=== PATIENT | male | born 1955 | race Caucasian/White ===

== ENCOUNTER 2020-06-01 20:58 | Emergency (ER) | payer MEDICARE, MEDICAID, SELFPAY ==
--- NOTE | ~2020-06-01 | XR_ITS ---
XR chest 1V portable DATE: 06/01/2020 21:20 INDICATION: Left-sided chest pain for 2 days TECHNIQUE: Portable upright AP chest on 06/01/2020 at 2112 hours COMPARISON: None FINDINGS: Heart size is within normal range. Mild infiltrate or atelectasis in the left lower lung; o therwise no pulmonary consolidation, pleural effusion or pneumothorax. Degenerative spurring of the thoracic spine. IMPRESSION: Mild infiltrate or atelectasis in the left lower lung Reviewed, dictated and finalized at location A.
[2020-06-01 21:00] VITALS: BP 131/72; PULSE 89; RESP 16; TEMP 36.7; O2SAT 100
--- NOTE | 2020-06-01 21:04 | ECG_ITS ---
Measurements Intervals [place] Rate: 87 P: 47 NC: 204 QRS: -10 QRSD: 93 T: -4 QT: 351 QTc: 424 Interpretive Statements SINUS RHYTHM BORDERLINE AV CONDUCTION DELAY LOW QRS VOLTAGE IN PRECORDIAL LEADS MINIMAL Q WAVES- ANTEROLATERAL LEADS INFERIOR INFARCT, AGE INDETERMINATE ABNORMAL ECG Electronically Signed On 06-02-2020 0:16:44 CDT by Spencer Young D.O.
[2020-06-01] MEDS: MORPHINE SULFATE (*CRX) 4 MG/ML INJ IV PUSH (21:43)
[2020-06-01 21:52] LABS: Basophils Percent Auto 0.5 % (0.2-1.2); Eosinophils Absolute Auto 0.7 K/mm3 (0-0.3); Eosinophils Percent Auto 8.7 % (0-4.4); Hematocrit 31.7 % (42.0-52.0); Hemoglobin 10.8 g/dL (14.0-18.0); Immature Granulocyte Absolute 0.03 K/mm3 (0.00-0.031); Immature Granulocyte Percent A 0.4 % (0-0.5); Lymphocytes Absolute Auto 1.85 K/mm3 (0.9-3.2); Lymphocytes Percent Auto 23.6 % (18.3-44.2); Mean Corpuscular HGB Conc 34.1 g/dl (32-36); Mean Corpuscular Volume 88.1 fl (80-100); Mean Platelet Volume 9.5 fl (7.4-10.4); Monocytes Absolute Auto 0.7 K/mm3 (0.1-0.6); Monocytes Percent Auto 8.9 % (2.6-8.5); Neutrophils Absolute Auto 4.5 K/mm3 (1.3-6.7); Neutrophils Percent Auto 57.9 % (45.5-73.1); Platelet Count Result 448 k/mm3 (150-375); Red Cell Distribution Width 13.1 % (11.5-14.5); White Blood Count 7.8 K/mm3 (4.5-10.0)
[2020-06-01 22:05] LABS: Alanine Aminotransferase 15 U/L (4-50); Alkaline Phosphatase 43 U/L (38-126); Anion Gap 4 mmol/L (8-16); Aspartate Amino Transferase 29 U/L (17-59); Bilirubin,Total 0.2 mg/dL (0.2-1.3); Blood Urea Nitrogen 31 mg/dL (9-20); Calcium 8.7 mg/dL (8.4-10.2); Carbon Dioxide 32 mmol/L (22-30); Chloride 91 mmol/L (98-107); Estimated CRCL calculation 54 ml/min; Estimated Glomerular Filt Rate 51; Glucose 208 mg/dL (75-110); Potassium 4.3 mmol/L (3.4-5.0); Sodium 127 mmol/L (137-145)
[2020-06-01 22:16] LABS: Troponin I < 0.012 ng/mL (0.000-0.034)
[2020-06-01 22:38] LABS: Troponin I < 0.012 ng/mL (0.000-0.034)
[2020-06-02 00:19] VITALS: BP 131/89; PULSE 63; RESP 16; O2SAT 98
--- NOTE | 2020-06-02 01:50 | ED.GENADULT ---
HPI - General Adult General Chief complaint: Chest Pain Stated complaint: left cp, non radiating since this am Time Seen by Provider: 06/01/20 21:19 History of Present Illness HPI narrative: Patient is a 64-year-old gentleman who presents to the emergency department with a chief complaint of chest pain. The patient reports that he has been having chest pain for multiple days states that it is not been resolved patient reports that's more on the left side of his chest states is worse with inspiration and worse with movement. Patient states that he has had prior history of 1 stent in the past but this does not feel like whenever he had his stent. Patient denies fever denies chills reports that he is a diabetic and has been treated for a ulcer of his left lower extremity in the recent history. Related Data Allergies Allergy/AdvReac Type Severity Reaction Status Date / Time No Known Allergies Allergy Unverified 03/04/12 10:30 Review of Systems Review of Systems: Narrative: A 10 system review of systems was completed on the patient and is negative except for what is stated in the HPI. Nursing and ancillary documentation was reviewed. [facility] Family History Family History Father Family history of diabetes mellitus in first degree relative Social History Social History Smoking status: Never smoker Alcohol intake: never Comments Patient has history of diabetes prior cardiac stent Social history the [facility] is a [facility] Exam Narrative: Exam Narrative: GENERAL: Well-appearing, well-nourished, and in no acute distress. HEAD: Normocephalic, atraumatic. EYES: PERRLA and EOMI. ENT: Nares clear, no rhinorrhea or epistaxis. Mucous membranes moist. NECK: Supple. CHEST: Clear to auscultation. No respiratory distress. HEART: Regular rate and rhythm. No murmur heard. Normal peripheral pulses. ABDOMEN: Soft, nontender, nondistended, normal active bowel sounds. EXTREMITIES: Normal range of motion. No edema. There is an amputation of the right lower extremity SKIN: Warm, dry, no rash. NEURO: No focal deficits. Alert and oriented x3. PSYCH: Normal mood and affect. Course Course Emergency Course: Patient had 2 sets of cardiac markers in the emergency department that were both negative. Chest x-ray shows a possible infiltrate in the left lung lind. Given the course of the pain felt this is most likely noncardiac. Given that there is findings consistent with infiltrate on the chest x-ray the patient will be empirically treated with antibiotics for community-acquired pneumonia. Vital Signs Vital signs: Vital Signs Temperature 36.7 C 06/01/20 21:00 Pulse Rate 89 06/01/20 21:00 Respiratory Rate 16 06/01/20 21:00 Blood Pressure 131/72 06/01/20 21:00 Pulse Oximetry 100 06/01/20 21:00 Temperature 36.7 C 06/01/20 21:00 Pulse Rate 63 06/02/20 00:19 Respiratory Rate 16 06/02/20 00:19 Blood Pressure 131/89 06/02/20 00:19 Pulse Oximetry 98 06/02/20 00:19 Medical Decision Making Vital Signs Vital Signs: Vital Signs Temperature 36.7 C 06/01/20 21:00 Pulse Rate 89 06/01/20 21:00 Respiratory Rate 16 06/01/20 21:00 Blood Pressure 131/72 06/01/20 21:00 Pulse Oximetry 100 06/01/20 21:00 Temperature 36.7 C 06/01/20 21:00 Pulse Rate 63 06/02/20 00:19 Respiratory Rate 16 06/02/20 00:19 Blood Pressure 131/89 06/02/20 00:19 Pulse Oximetry 98 06/02/20 00:19 Lab Data Result diagrams: 06/01/20 21:45 06/01/20 21:45 Labs: Lab Results 06/01/20 06/01/20 06/01/20 Range/Units 21:45 21:45 22:10 WBC 7.8 (4.5-10.0) K/mm3 RBC 3.60 L (4.6-6.20) M/mm3 Hgb 10.8 L (14.0-18.0) g/dL Hct 31.7 L (42.0-52.0) % MCV 88.1 (80-100) fl MCH 30.0 (26-34) pg MCHC 34.1 (3
--- NOTE | 2020-06-02 02:39 | PC.NURSE ---
made contact with [facility] to transfer patient back to [facility] in [place]. ETA in route
[2020-06-02 02:45] VITALS: BP 134/82; PULSE 88; RESP 16; O2SAT 97
--- NOTE | 2020-06-02 03:59 | PC.NURSE ---
[facility] has arrived and EMT aware that pt is going to [facility] in [place]
[2020-06-02 04:59] VITALS: BP 124/73; PULSE 69; RESP 16; TEMP 36.3; O2SAT 97
== END 2020-06-02 05:00 ==
PROVIDERS: Emergency Provider Emergency Medicine; PCP Internal Medicine
DX: J18.9 Pneumonia, unspecified organism (principal); R07.89 Other chest pain; E11.9 Type 2 diabetes mellitus without complications; Z79.4 Long term (current) use of insulin; Z95.5 Presence of coronary angioplasty implant and graft; R94.31 Abnormal electrocardiogram [ECG] [EKG]
CPT/HCPCS: 36415; 71045; 80053; 84484; 85025; 93005; 96374; 99284; A9270; J2270

== ENCOUNTER 2020-12-23 11:24 | Observation (INO) | payer MEDICARE, MEDICAID, SELFPAY ==
--- NOTE | ~2020-12-23 | CT_ITS ---
EXAMINATION: CT abdomen pelvis w con DATE: 12/23/2020 13:32 INDICATION: Diffuse abdominal tenderness TECHNIQUE: Computed tomography (CT) of the abdomen and pelvis was performed with 100 mL Omnipaque-350 intravenous contrast. Automated exposure control and iterative reconstruction technique were employe d. The dose-length product was 1331.12 mGy-cm. COMPARISON: 03/04/2012 tiny left and trace right pleural effusions with mild dependent atelectasis in the bilateral lower lobes. Heart size is normal. Atherosclerotic coronary artery calcifications. Like ly stenting along the left anterior descending coronary artery. No pericardial effusion. Prominent bu t still normal-sized likely reactive paraesophageal lymph node measuring 9 mm in maximal short axis d iameter. Percutaneous gastrostomy tube with bulb position in the distal body of the stomach. 7 mm cyst at the anterior dome of the liver. There is mild wall thickening of the gallbladder and trace amount of lidia cholecystic fluid suspicious for acute cholecystitis. Increased intraluminal density at the neck of t he gallbladder consistent with gallstones and/or sludge. Punctate dystrophic calcification is at the head and body of the pancreas consistent with sequela of of chronic pancreatitis. No peripancreatic i nflammatory stranding to suggest acute interstitial pancreatitis. Mild scattered diverticulosis with sigmoid predominance without adjacent inflammatory change to suggest diverticulitis. Small bowel and appendix are normal. There is diffuse bladder wall thickening. No free intraperitoneal gas or fluid. No pathologically enlarged abdominal or pelvic lymphadenopathy. Spleen, bilateral adrenal glands and kidneys are normal. Very small fat-containing umbilical hernia. L5 spondylolysis with bilateral pars intra-articular is defects and 7 mm anterolisthesis L5 on S1 with severe disc height loss. FINDINGS: 1. Findings suspicious for cholelithiasis and acute cholecystitis. Correlate for Head and could con psychometrist further evaluation with either ultrasound or HIDA scan. 2. Diffuse bladder wall thickening which could be due to cystitis either acute or chronic. Correlate with urinalysis. 2. Very small left and trace right pleural effusions. IMPRESSION: 1. Reviewed, dictated and finalized at location A. IMPRESSION: 1.
--- NOTE | ~2020-12-23 | US_ITS ---
EXAMINATION: US abdomen limited DATE: 12/24/2020 08:01 INDICATION: Cholecystitis with elevated liver enzymes TECHNIQUE: Multiple grayscale and Doppler ultrasound images of the abdomen were obtained. COMPARISON: None FINDINGS: The pancreatic head and body are normal in appearance. The pancreatic tail is not visualized. Liver has normal echogenicity and contour, with a smooth surface. No liver lesion identified. No intrahepat ic biliary duct dilation suspected. Portal venous flow was seen in the hepatopetal, normal direction and has normal Doppler waveform. There is diffuse mild gallbladder wall thickening. The neck of the g allbladder suspected sludge or stones were identified on prior CT is not clearly visualized on the cu rrent study due to in part to rib shadowing. The common bile duct measures 4 mm, which is normal. Son ographic Head sign was reported as negative by the mobile nurse. IMPRESSION: 1. Mild gallbladder wall thickening with negative sonographic Head sign and with no cholelithiasis evident on the current study although the neck of the gallbladder were suspected stones versus sludge were identified on prior CT is not clearly visualized in the current study. This remains suspicious but not diagnostic for acute cholecystitis and could consider HIDA scan for further evaluation. Reviewed, dictated and finalized at location A. GER AUDIT IMPRESSION: 1. Mild gallbladder wall thickening with negative sonographic Head sign and w ith no cholelithiasis evident on the current study although the neck of the gal lbladder were suspected stones versus sludge were identified on prior CT is not clearly visualized in the current study. This remains suspicious but not diagn ostic for acute cholecystitis and could consider HIDA scan for further evaluati on.
--- NOTE | ~2020-12-23 | NM_ITS ---
EXAMINATION: NM hepatobiliary wo pharm DATE: 12/25/2020 11:09 INDICATION: Cholecystitis. COMPARISON: CT abdomen and pelvis 12/23/2020, ultrasound 12/23/20 TECHNIQUE: 5 mCi Tc-99m mebrofenin (Choletec) was administered intravenously. Scintigraphic images o f the abdomen were obtained for one hour. FINDINGS: There is normal clearance of radiotracer from the blood pool. There is homogeneous tracer u ptake by the liver. Activity progresses to the bowel and gallbladder. IMPRESSION: 1. Normal hepatobiliary scintigraphy. Reviewed, dictated and finalized at location A. IR TECH
--- NOTE | ~2020-12-23 | XR_ITS ---
MODIFIED ESOPHAGRAM HISTORY: Dysphagia. TECHNIQUE: Modified barium esophagram was performed by speech pathologist under radiologist fluorosco pic guidance. This was recorded on tape. The exam was reviewed on 12/26/2020 09:29 HOISTING LABORER. The DAP for this procedure was 2.1 Gycm2. Fluoroscopy time is 2.5 minutes. One fluoroscopic image. FINDINGS: Lateral projection of the cervical spine demonstrates normal alignment. There is normal s wallowing function during oral stage. There is reduced laryngeal elevation. There is trace laryngeal penetration which clears with thin liquids. No aspiration.. IMPRESSION: 1: Trace laryngeal penetration without aspiration. 2: Please refer to speech pathologist report for additional detail. Reviewed, dictated and finalized at location A. TING LABORER
[2020-12-23 11:26] VITALS: BP 95/68; PULSE 100; RESP 18; TEMP 37.3; O2SAT 100
--- NOTE | 2020-12-23 12:18 | ED.RECABL ---
HPI - Recheck/Abnormal Lab/Rx General Chief Complaint: Recheck/Abnormal Lab/Rx Stated Complaint: UNABLE TO FLUSH G TUBE Time Seen by Provider: 12/23/20 12:02 Source: patient, EMS, RN notes reviewed and old records reviewed Mode of arrival: EMS Limitations: no limitations and other (poor historian) History of Present Illness HPI narrative: This is a 65 year old male with history of multiple medical problems who presents for evaluation of abdominal pain and g-tube dysfunction. Patient reports he has been having pain around his g tube for 2 weeks. He also has nausea and he reports vomiting over the past 2 days. He denies fever, chills, or diarrhea, and he states he had normal bowel movement today. Patient is unsure when his g tube was placed and why it is in place. Nursing staff reported patient was sent in because intermediate staff was unable to flush g tube this morning and they aspirated some blood tingle fluid. It is also reports his g tube was placed at [facility]. He states he does eat and take oral medications. Related Data Home Medications Medication Instructions Recorded Confirmed acetaminophen 650 mg PO Q6H PRN 12/23/20 12/23/20 acidophilus-sporogenes 1 tablet PO BID 12/23/20 12/23/20 albuterol sulfate 2 puff INHALATION QID PRN 12/23/20 12/23/20 artificial tears solution 2 drp OPHTHALMIC (EYE) PRN PRN 12/23/20 12/23/20 carboxymethylcellulose sodium 1 drp EACH EYE 4-6XD PRN 12/23/20 12/23/20 carvedilol 6.25 mg PO Q12H 12/23/20 12/23/20 cefepime 2 g IV Q12H 12/23/20 12/23/20 cholecalciferol (vitamin D3) 125 mcg PO DAILY 12/23/20 12/23/20 collagenase clostridium histo. 1 applic TOPICAL DAILY 12/23/20 12/23/20 cyanocobalamin (vitamin B-12) 1,000 mcg PO DAILY 12/23/20 12/23/20 [Vitamin B-12] escitalopram oxalate 5 mg PO DAILY 12/23/20 12/23/20 esomeprazole magnesium 40 mg PO DAILY 12/23/20 12/23/20 fenofibrate 145 mg PO DAILY 12/23/20 12/23/20 ferrous sulfate 325 mg PO TID 12/23/20 12/23/20 fluticasone propionate [Allergy 1 spray INTRANASAL DAILY 12/23/20 12/23/20 Relief (fluticasone)] furosemide 20 mg PO DAILY 12/23/20 12/23/20 guaifenesin [Antitussive Cough 200 mg PO Q4H PRN 12/23/20 12/23/20 (guaifenesn)] insulin aspart U-100 [Novolog 4 unit SUBCUT ACHS 12/23/20 12/23/20 U-100 Insulin aspart] loperamide 2 mg PO Q4H PRN 12/23/20 12/23/20 metformin 1,000 mg PO BID 12/23/20 12/23/20 estbfyrztguy-nqz-jpnu-FA-vit K 1 tablet PO DAILY 12/23/20 12/23/20 [Adults Multivitamin] nitroglycerin 0.4 mg SUBLINGUAL Q5-15M PRN 12/23/20 12/23/20 ondansetron HCl [Zofran] 4 mg PO Q6H PRN 12/23/20 12/23/20 rosuvastatin 20 mg PO DAILY 12/23/20 12/23/20 thiamine HCl (vitamin B1) [Vitamin 100 mg PO DAILY 12/23/20 12/23/20 B-1] Allergies Allergy/AdvReac Type Severity Reaction Status Date / Time No Known Allergies Allergy Unverified 03/04/12 10:30 Review of Systems Review of Systems: All systems reviewed & are unremarkable except as noted in HPI and below Constitutional: Constitutional: Denies chills and Denies fever(s) Cardiovascular: Cardiovascular: Denies chest pain Respiratory: Respiratory: Denies cough and Denies dyspnea Gastrointestinal: Gastrointestinal: Reports abdominal pain, Denies diarrhea, Reports nausea and Reports vomiting Genitourinary: Genitourinary: Denies hematuria [facility] Past Medical History Medical History (Updated 12/23/20 @ 23:42 by Judit Dooley MD) Anemia Chronic wound of extremity left heel Congestive heart failure systolic and diastolic Coronary artery disease Diabetes mellitus type 2 G tube feedings History of Clostridioides difficile colitis History of gastrostomy tube placement 11/17/2020 dr anewenah Hyperlipidemia Hypertension Iliac vein stenosis, right Major depressive disorder Necrotizing fasciitis Neuropathy Obstructive sleep apnea Peripheral vascular disease Polyneuropathy Surgical History Surgical History (Updated 12/23/20 @ 21:51 by
[2020-12-23] MEDS: SODIUM CHLORIDE 0.9% IV 1,000 ML 999 ML IV CONT (12:46)
[2020-12-23 12:54] LABS: Basophils Percent Auto 0.1 % (0.2-1.2); Eosinophils Absolute Auto 0.1 K/mm3 (0-0.3); Eosinophils Percent Auto 0.7 % (0-4.4); Hematocrit 26.5 % (42.0-52.0); Hemoglobin 8.7 g/dL (14.0-18.0); Immature Granulocyte Absolute 0.06 K/mm3 (0.00-0.031); Immature Granulocyte Percent A 0.4 % (0-0.5); Lymphocytes Absolute Auto 0.78 K/mm3 (0.9-3.2); Lymphocytes Percent Auto 5.5 % (18.3-44.2); Mean Corpuscular HGB Conc 32.8 g/dl (32-36); Mean Corpuscular Hemoglobin 31.1 pg (26-34); Mean Corpuscular Volume 94.6 fl (80-100); Mean Platelet Volume 9.7 fl (7.4-10.4); Monocytes Absolute Auto 0.8 K/mm3 (0.1-0.6); Monocytes Percent Auto 5.7 % (2.6-8.5); Neutrophils Absolute Auto 12.3 K/mm3 (1.3-6.7); Neutrophils Percent Auto 87.6 % (45.5-73.1); Platelet Count Result 273 k/mm3 (150-375); Red Cell Distribution Width 15.7 % (11.5-14.5); White Blood Count 14.1 K/mm3 (4.5-10.0)
[2020-12-23 13:06] LABS: Alanine Aminotransferase 351 U/L (4-50); Albumin Level 3.7 g/dL (3.5-5.1); Alkaline Phosphatase 116 U/L (38-126); Anion Gap 7 mmol/L (8-16); Aspartate Amino Transferase 512 U/L (17-59); Bilirubin,Total 0.8 mg/dL (0.2-1.3); Blood Urea Nitrogen 36 mg/dL (9-20); Calcium 9.1 mg/dL (8.4-10.2); Carbon Dioxide 31 mmol/L (22-30); Chloride 88 mmol/L (98-107); Estimated CRCL calculation 46 ml/min; Estimated Glomerular Filt Rate 41; Glucose 141 mg/dL (65-110); Lipase 130 U/L (23-300); Potassium 4.8 mmol/L (3.4-5.0); Sodium 126 mmol/L (137-145)
[2020-12-23 13:34] LABS: Acetaminophen < 10 ug/mL (10-30)
[2020-12-23 14:22] LABS: Hepatitis B Surface Antigen Negative (Negative)
[2020-12-23 14:28] LABS: HAV RESULT Negative (Negative); Hepatitis B Core IgM Result Negative (Negative)
[2020-12-23 14:40] VITALS: BP 107/68; PULSE 56; RESP 18; O2SAT 97
[2020-12-23 14:40] LABS: Hepatitis C Virus Antibody Negative (Negative)
[2020-12-23 14:48] LABS: Add Urine Microscopic? YES; Appearance Urine Cloudy (Clear); Bilirubin Urine Negative (Negative); Blood Urine Negative (Negative); Color Urine Yellow (Yellow); Glucose Urine UA Negative (Negative); Ketones Urine Negative (Negative); Leukocyte Esterase Ur Negative LEU/UL (Negative); Mucus Urine Rare /lpf; Nitrate Urine Negative (Negative); Protein Urine 1+ mg/dL (Negative); RBC Urine 0-2 /hpf (0-2); Specific Grav Ur 1.018 (1.001-1.035); Urobilinogen Urine Negative mg/dL (<2.0); WBC Urine 0-3 /hpf
[2020-12-23] MEDS: MORPHINE SULFATE (*CRX) 4 MG/ML INJ IV PUSH (17:12)
[2020-12-23 17:29] VITALS: BMI 35.0
--- NOTE | 2020-12-23 17:33 | PC.NURSE ---
This patient, Bruno Justin, was admitted to Medical Room 242-01. Patient/family oriented to hospital policies and general routines including ID bracelet, bed and alarms, visiting hours, pain management, procedures, bathroom and other care routines, personal items, smoking policy, room service/diet, and visiting hours. Information on how to activate the Rapid Response Team has been discussed. Patient/Family are encouraged to report perceived risks to care and to ask questions if they do not understand what they are told or what they should do.
[2020-12-23] MEDS: SODIUM CHLORIDE 0.9% IV 1,000 ML 125 ML IV CONT (19:03)
--- NOTE | 2020-12-23 21:29 | PM.IMHP ---
H&P: HPI History of Present Illness Date/Time: 12/23/20 21:29 this is a 65-year-old male patient who has a history of diabetes, Erika and digestive heart failure and pressure ulcer to the left heel which is chronic. The patient tells me he resides at [facility]. The patient was sent into the emergency room today to be evaluated for abdominal pain NG tube dysfunction. The patient was complaining of abdominal discomfort around his G-tube for last 2 weeks. Patient has had nausea and vomiting over the past 2 days. He denied any fever chills or diarrhea. Patient is not eating very well at all. The patient does have a Gtube for unknown reasons. however the longterm staff sent the patient to the ER today because they were unable to flush his G-tube this morning. In aspirated some blood tinged fluid. This G-tube had been placed at [facility]. Abdominal pelvis CT was read as the following. 1. Findings suspicious for cholelithiasis and acute cholecystitis. Correlate for Head and could consider further evaluation with either ultrasound or HIDA scan. 2. Diffuse bladder wall thickening which could be due to cystitis either acute or chronic. Correlate with urinalysis. 2. Very small left and trace right pleural effusions. white count was 14.1. H&H is 8.7 and 26.5 creatinine 1.7 glucose 141. AST was 512 and ALT 351. The patient was started on Zosyn and surgical consult was placed per ED. the patient was started on Zosyn and IV fluids in the emergency room. The patient is being admitted to observation status on the date of service of 12/23/2020 Chief Complaint: dysfunctional G-tube Review of Systems Review of Systems: the patient is a very poor historian. When I ask him questions he just states I do not know PMFSH Past Medical History Medical History (Updated 12/23/20 @ 22:10 by Jane Lombardi NP) Anemia Chronic wound of extremity left heel Congestive heart failure systolic and diastolic Coronary artery disease Diabetes mellitus type 2 G tube feedings History of Clostridioides difficile colitis History of gastrostomy tube placement 11/17/2020 dr higgins Hyperlipidemia Hypertension Iliac vein stenosis, right Major depressive disorder Necrotizing fasciitis Neuropathy Obstructive sleep apnea Peripheral vascular disease Polyneuropathy Surgical History Surgical History (Updated 12/23/20 @ 21:51 by Jane Lombardi NP) Above knee amputation of right lower extremity History of colonoscopy Family History Family History (Updated 12/23/20 @ 21:52 by Jane Lombardi NP) Father Family history of diabetes mellitus in first degree relative Hypertension Cancer Mother Lung cancer Sibling Heart disease Social History Social History (Updated 12/23/20 @ 21:54 by Jane Lombardi NP) Social History: the patient is . he is disabled and stated that he has not had any children. He lives at [facility] in [facility]. patient is lifelong nonsmoker. Code status do not resuscitate Smoking status: Never smoker Alcohol intake: never Substance use: never Substance use type: does not use Spiritual care concerns: No Meds Home Medications and Allergies Home Medications Medication Instructions Recorded Confirmed Type insulin aspart U-100 100 unit/mL See Rx Instructions SUB-Q TID #15 05/17/19 12/23/20 Rx (3 mL) subcutaneous pen ml hydrocodone 5 mg-acetaminophen 325 1 tablet PO Q6H PRN #120 tablet 06/28/19 12/23/20 Rx mg tablet pregabalin 100 mg capsule See Rx Instructions PO BID #90 cap 06/16/20 12/23/20 Rx acetaminophen 650 mg PO Q6H PRN 12/23/20 12/23/20 History acidophilus-sporogenes 1 tablet PO BID 12/23/20 12/23/20 History albuterol sulfate 2 puff INHALATION QID PRN 12/23/20 12/23/20 History artificial tears solution 2 drp OPHTHALMIC (EYE) PRN PRN 12/23/20 12/23/20 History carboxymethylcellulose sodium 1 drp EACH EYE 4-6XD PRN 12/23/20
[2020-12-23 21:47] LABS: Glucose Point of Care 98 mg/dl (65-105)
[2020-12-23 22:00] VITALS: BP 122/47; PULSE 58; RESP 18; TEMP 36.4; O2SAT 96
[2020-12-23] MEDS: PREGABALIN (*CRX) 50 MG CAPSULE 100 MG PO (22:59)
[2020-12-23 23:01] VITALS: PULSE 88
[2020-12-23] MEDS: carvediloL 6.25 MG TABLET PO (23:01)
[2020-12-23 23:07] VITALS: O2SAT 94
[2020-12-24] VITALS (7 sets, daily range): BP systolic 104–115; BP diastolic 53–57; PULSE 59–118; RESP 13–20; TEMP 36.3–36.4; O2SAT 92–97
--- NOTE | 2020-12-24 02:05 | PC.NURSE ---
Daylight Savings Time For Daylight Savings Time Ending in the Fall - Clocks are moved back. For Daylight Savings Time Beginning in the Spring - Clocks are moved ahead. For [facility], the time of change occurs at 0200 hrs. Time is taken from the food and beverage server. This entry on the patient's chart recognizes the change in time reflected during documentation. Example: 2 entries for vital signs may be charted for 0200 hrs.
[2020-12-24] MEDS: SODIUM CHLORIDE 0.9% IV 1,000 ML 125 ML IV CONT ×2 (02:30→19:00)
[2020-12-24 08:26] LABS: Glucose Point of Care 113 mg/dl (65-105)
[2020-12-24 08:28] LABS: Alanine Aminotransferase 200 U/L (4-50); Albumin Level 3.1 g/dL (3.5-5.1); Alkaline Phosphatase 96 U/L (38-126); Anion Gap 9 mmol/L (8-16); Aspartate Amino Transferase 145 U/L (17-59); Bilirubin,Total 0.5 mg/dL (0.2-1.3); Blood Urea Nitrogen 30 mg/dL (9-20); Calcium 8.1 mg/dL (8.4-10.2); Carbon Dioxide 25 mmol/L (22-30); Chloride 95 mmol/L (98-107); Estimated CRCL calculation 51 ml/min; Estimated Glomerular Filt Rate 51; Glucose 112 mg/dL (65-110); Potassium 4.1 mmol/L (3.4-5.0); Sodium 129 mmol/L (137-145)
[2020-12-24 08:32] LABS: Basophils Percent Auto 0.3 % (0.2-1.2); Eosinophils Absolute Auto 0.2 K/mm3 (0-0.3); Eosinophils Percent Auto 1.7 % (0-4.4); Hematocrit 25.5 % (42.0-52.0); Hemoglobin 8.1 g/dL (14.0-18.0); Immature Granulocyte Absolute 0.05 K/mm3 (0.00-0.031); Immature Granulocyte Percent A 0.5 % (0-0.5); Lymphocytes Absolute Auto 0.23 K/mm3 (0.9-3.2); Lymphocytes Percent Auto 2.2 % (18.3-44.2); Mean Corpuscular HGB Conc 31.8 g/dl (32-36); Mean Corpuscular Volume 97.7 fl (80-100); Mean Platelet Volume 10.6 fl (7.4-10.4); Monocytes Absolute Auto 0.6 K/mm3 (0.1-0.6); Monocytes Percent Auto 5.6 % (2.6-8.5); Neutrophils Absolute Auto 9.6 K/mm3 (1.3-6.7); Neutrophils Percent Auto 89.7 % (45.5-73.1); Platelet Count Result 227 k/mm3 (150-375); Red Blood Count 2.61 M/mm3 (4.6-6.20); Red Cell Distribution Width 16.1 % (11.5-14.5); White Blood Count 10.7 K/mm3 (4.5-10.0)
--- NOTE | 2020-12-24 08:34 | WPDGICN ---
Assessment and Plan Assessment and plan (1) Cholecystitis: Code(s): K81.9 - Cholecystitis, unspecified Status: Acute Assessment and Plan: Abnormal CT scan and ultrasound suggests the possibility of cholecystitis. Surgery has been consulted. Would recommend HIDA scan to determine whether the gallbladder is functioning adequately. Await surgical input. Patient has no overt clinical signs of cholecystitis at present. (2) PEG (percutaneous endoscopic gastrostomy) status: Code(s): Z93.1 - Gastrostomy status Status: Acute Assessment and Plan: PEG tube currently flushes adequately with gastric contents withdrawn suggesting is working adequately. Patient is able to eat orally without difficulty. At some point would suggest modified barium swallow to see if he can maintain oral intake. If so then G-tube could be discontinued. Would wait an adequate amount of time to ensure that he can maintain oral intake for nutritional support. Old records regarding the reason for G-tube placement or not immediately available for review. At this point resuming tube feedings can be implemented , pending surgical consultation. GI Consult Note Consult date/time: 12/24/20 08:35 HPI: Bruno Justin is a 65 year old male I am asked to see patient because of a plugged G-tube. Patient apparently hospitalized G-tube was placed at the beginning of November this year. Apparently at the skilled nursing he has been able to maintain some oral intake. He currently is conversant and answers most questions in a reasonable fashion. His memory is not very good. He is a poor historian. Currently denies abdominal pain. He was sent to [facility] emergency room apparently because of inability to flush the G-tube. CT scan suggested he may have cholecystitis and question of cholelithiasis. Ultrasound performed this morning is equivocal and a HIDA scan was advised. Patient denies any nausea or vomiting. Review of Systems Review of Systems: ROS unobtainable: Yes unobtainable due to mental status PMFSH Past Medical History Medical History (Updated 12/23/20 @ 23:42 by Judit Dooley MD) Anemia Chronic wound of extremity left heel Congestive heart failure systolic and diastolic Coronary artery disease Diabetes mellitus type 2 G tube feedings History of Clostridioides difficile colitis History of gastrostomy tube placement 11/17/2020 dr higgins Hyperlipidemia Hypertension Iliac vein stenosis, right Major depressive disorder Necrotizing fasciitis Neuropathy Obstructive sleep apnea Peripheral vascular disease Polyneuropathy Surgical History Surgical History (Updated 12/24/20 @ 08:37 by Hesham Vigil MD) Above knee amputation of right lower extremity History of colonoscopy Family History Family History (Updated 12/23/20 @ 21:52 by Jane Lombardi NP) Father Family history of diabetes mellitus in first degree relative Hypertension Cancer Mother Lung cancer Sibling Heart disease Social History Social History (Updated 12/23/20 @ 21:54 by Jane Lombardi NP) Social History: the patient is . he is disabled and stated that he has not had any children. He lives at [facility] in [facility]. patient is lifelong nonsmoker. Code status do not resuscitate Smoking status: Never smoker Alcohol intake: never Substance use: never Substance use type: does not use Spiritual care concerns: No Meds Home Medications and Allergies Home Medications Medication Instructions Recorded Confirmed Type insulin aspart U-100 100 unit/mL See Rx Instructions SUB-Q TID #15 05/17/19 12/23/20 Rx (3 mL) subcutaneous pen ml hydrocodone 5 mg-acetaminophen 325 1 tablet PO Q6H PRN #120 tablet 06/28/19 12/23/20 Rx mg tablet pregabalin 100 mg capsule See Rx Instructions PO BID #90 cap 06/16/20 12/23/20 Rx acetaminophen 650 mg PO Q6H PRN 12/23/20 12/23/20 History acidophilu
[2020-12-24] MEDS: CHOLECALCIFEROL 1,000 UNITS TABLET 1000 UNITS PO (09:06)
[2020-12-24] MEDS: ESCITALOPRAM OXALATE 5 MG TABLET PO (09:06)
[2020-12-24] MEDS: THIAMINE HCL 100 MG TABLET PO (09:06)
[2020-12-24] MEDS: CYANOCOBALAMIN 1,000 MCG TABLET 1000 MCG PO (09:06)
[2020-12-24] MEDS: FERROUS SULFATE 324 MG TABLET PO ×3 (09:06→16:55)
[2020-12-24] MEDS: MULTIVITAMINS /C LUTEIN (CENTRUM SILVER) TABLET *BKC 1 TAB PO (09:06)
[2020-12-24] MEDS: ROSUVASTATIN 10 MG TABLET 20 MG PO (09:06)
[2020-12-24] MEDS: COLLAGENASE OINT 30 GM TUBE 1 APPLIC TOPICAL (09:06)
[2020-12-24] MEDS: FENOFIBRATE NANOCRYSTALLIZED 145 MG TABLET PO (09:06)
[2020-12-24] MEDS: carvediloL 6.25 MG TABLET PO ×2 (09:06→20:39)
[2020-12-24] MEDS: FLUTICASONE PROPIONATE 0.05% NA SPR 16 GM BTL (*BKC) 1 SPRAY NASAL (09:07)
[2020-12-24] MEDS: INSULIN ASPART (*BKC) 100 UNITS/ML SUB-Q ×3 (09:08→16:55)
[2020-12-24] MEDS: HEPARIN SODIUM 5,000 UNITS/ML VIAL 5000 UNITS SUB-Q ×2 (09:10→20:40)
[2020-12-24] MEDS: PREGABALIN (*CRX) 50 MG CAPSULE PO ×2 (09:10→20:39)
--- NOTE | 2020-12-24 09:36 | PM.CNGS ---
Assessment and Plan Assessment and plan (1) Cholecystitis: Code(s): K81.9 - Cholecystitis, unspecified Status: Acute Assessment and Plan: exam benign, will get HIDA for further eval (2) PEG (percutaneous endoscopic gastrostomy) status: Code(s): Z93.1 - Gastrostomy status Status: Acute Assessment and Plan: was able to flush s issue History of Present Illness Consult details Consult date: 12/24/20 Reason for consult: abdominal pain Requesting physician: Ja Pierce MD Narrative: Pt is a 65 y/o M c multiple med issues presenting from [facility] c/o N/V, upper abd pain. Pt had PEG tube placed recently and reports pain is really only around site. Pt had tube placed secondary to poor po intake but has since been able to tolerate diet and meds. G tube was reportedly clogged on admission. Since admit, pt denies any further abd pain, N/V. Review of Systems Constitutional: Constitutional: Reports anorexia, Denies chills, Reports fatigue, Denies fever(s), Denies increased appetite, Reports lethargy, Denies malaise, Reports poor appetite and Reports weakness Eyes: Eyes: Reports no additional eye complaints ENT: Reports system reviewed and no additional complaints, except as documented Cardiovascular: Cardiovascular: Reports no additional cardiovascular complaints Respiratory: Respiratory: Reports no additional respiratory complaints Gastrointestinal: Gastrointestinal: Reports as per HPI, Reports abdominal pain, Denies bloating, Denies change in bowel habits, Reports early satiety, Denies heartburn, Reports nausea and Reports vomiting Genitourinary: Genitourinary: Reports no additional male genitourinary complaints Musculoskeletal: Musculoskeletal: Reports no additional musculoskeletal complaints Integumentary/Breasts: Skin/Breast: Reports system reviewed and no additional complaints, except as docu Neurologic: Reports system reviewed and no additional complaints, except as documented Psychiatric: Psychiatric: Reports no additional psychiatric complaints Endocrine: Endocrine: Reports no additional endocrine complaints Hematologic/Lymphatic: Hematologic/Lymphatic: Reports no additional hematologic/lymphatic complaints Allergic/Immunologic: Allergic/Immunologic: Reports no additional allergic/immunologic complaints PMFSH Past Medical History Medical History Anemia Chronic wound of extremity left heel Congestive heart failure systolic and diastolic Coronary artery disease Diabetes mellitus type 2 G tube feedings History of Clostridioides difficile colitis History of gastrostomy tube placement 11/17/2020 dr higgins Hyperlipidemia Hypertension Iliac vein stenosis, right Major depressive disorder Necrotizing fasciitis Neuropathy Obstructive sleep apnea Peripheral vascular disease Polyneuropathy Surgical History Surgical History Above knee amputation of right lower extremity History of colonoscopy Family History Family History Father Family history of diabetes mellitus in first degree relative Hypertension Cancer Mother Lung cancer Sibling Heart disease Social History Social History Social History: the patient is . he is disabled and stated that he has not had any children. He lives at [facility] in [facility]. patient is lifelong nonsmoker. Code status do not resuscitate Smoking status: Never smoker Alcohol intake: never Substance use: never Substance use type: does not use Spiritual care concerns: No Meds Home Medications and Allergies Home Medications Medication Instructions Recorded Confirmed Type insulin aspart U-100 100 unit/mL See Rx Instructions SUB-Q TID #15 05/17/19 12/23/20 Rx (3 mL) subcutaneo
[2020-12-24 12:42] LABS: Glucose Point of Care 168 mg/dl (65-105)
--- NOTE | 2020-12-24 17:29 | PM.IMPN ---
Progress Note: A&P Assessment and Plan (1) Gastrostomy tube dysfunction: Code(s): K94.23 - Gastrostomy malfunction Status: Acute Assessment and Plan: PEG tube currently flushes adequately with gastric contents withdrawn suggesting is working adequately. Patient is able to eat orally without difficulty. At some point would suggest modified barium swallow to see if he can maintain oral intake. If so then G-tube could be discontinued. (2) Cholecystitis: Code(s): K81.9 - Cholecystitis, unspecified Status: Acute Assessment and Plan: The patient was started on Zosyn. GI recommends HIDA scan to determine whether the gallbladder is functioning adequately. Await surgical input. Patient has no overt clinical signs of cholecystitis at present. (3) Major depressive disorder: Code(s): F32.9 - Major depressive disorder, single episode, unspecified Status: Chronic Assessment and Plan: Continue with Lexapro (4) Polyneuropathy: Code(s): G62.9 - Polyneuropathy, unspecified Status: Acute Assessment and Plan: continue with Lyrica (5) Congestive heart failure: Code(s): I50.9 - Heart failure, unspecified Status: Chronic Assessment and Plan: currently diuretic on hold to avoid dehydration. Continue with Coreg only. (6) Hyperlipidemia: Code(s): E78.5 - Hyperlipidemia, unspecified Status: Chronic Assessment and Plan: continue fenofibrate (7) Chronic wound of extremity: Status: Chronic Assessment and Plan: wound Care has been consulted. This is a chronic diabetic foot ulcer. He has peripheral vascular disease. 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 (8) G tube feedings: Code(s): Z93.1 - Gastrostomy status Status: Acute Assessment and Plan: Currently on hold. Peg tube currently flushes adequately with gastric contents withdrawn suggesting proper functioning. We will schedule modified barium swallow in a.m. to see if the patient is able to maintain oral intake. (9) Anemia: Code(s): D64.9 - Anemia, unspecified Status: Chronic Assessment and Plan: continue to monitor. Check CBC daily. (10) Obstructive sleep apnea: Code(s): G47.33 - Obstructive sleep apnea (adult) (pediatric) Status: Chronic Assessment and Plan: CPAP machine auto titrate to home (11) Diabetes mellitus: Code(s): E11.9 - Type 2 diabetes mellitus without complications Status: Chronic Assessment and Plan: holding home metformin at this time. Will do sliding scale insulin. Long-acting insulin has been continued. Fasting blood glucose was 112. Accu-Chek in the 113-168 range. (12) Hypertension: Code(s): I10 - Essential (primary) hypertension Status: Chronic Assessment and Plan: Blood pressure on the soft side with systolic in the 115-117/56-57 range. Hold Coreg. (13) Acute kidney injury superimposed on chronic kidney disease: Code(s): N17.9 - Acute kidney failure, unspecified; N18.9 - Chronic kidney disease, unspecified Status: Acute Assessment and Plan: patient's creatinine is 1.7 today previously is 1.4. I am holding his metformin and his Lasix today. Continue with IV fluids and recheck in the morning. (14) Hyponatremia: Code(s): E87.1 - Hypo-osmolality and hyponatremia Status: Acute Assessment and Plan: Improved with a sodium of 129 today. Continue to monitor. Subjective Date/time seen: Narrative: This is a 65-year-old male patient who has a history of diabetes, heart failure, pressure ulcer to the left heel Admitted for evaluation of abdominal pain NG tube dysfunction. The patient had been experiencing nausea and vomiting over the past 2 days. He denied any fever chills or diarrhea. Patient is not eating very well at all. Abdominal pelvis CT was read as suspicious for cho
[2020-12-24 17:45] LABS: Glucose Point of Care 118 mg/dl (65-105)
--- NOTE | 2020-12-24 17:58 | PC.NURSE ---
This nurse contacted the POA Nenita Dobbs [phone]. The POA stated that the facility stated that the patient was having blood coming from his G tube and there was some puss noted around the incision site of the G tube. This nurse informed the POA that the facility stated that the G tube was clogged but at this time it currently isn't clogged, no blood noted in the tube itself, and there is no puss noted around the skin site where the G tube is located. The family member was also concerned because at one point the patient had gotten down to 150 pounds and is now currently almost 200 pounds with a drastic weight increase according to family. This nurse stated that she was going to contact the facility to discuss the above information with them. The facility was called and it has been noted that the patient is eating 3 meals a day sometimes only 2 and they were giving the patient tube feedings during the evening time Glucerna 1.5 50mL/hr from 2000 to 0600. The nurse at the facility that this nurse discussed the patient with did not mention any regular flushing of the G tube or the use of the G tube during the day time. Family had stated that the patient was having troubles with vomiting and they were concerned he was getting too much food and the facility stated that he doesn't always eat every meal but he has been having some vomiting issues. A message was left with the floorperson in regards to the patients G tube feedings, GI and surgery are currently following on the patients case.
[2020-12-24] MEDS: ACIDOPHILUS/BULGARICUS CHEWABLE TABLET 1 TABLET PO (18:36)
[2020-12-24] MEDS: PREGABALIN (*CRX) 50 MG CAPSULE 100 MG PO (20:39)
[2020-12-24 21:55] LABS: Glucose Point of Care 90 mg/dl (65-105)
[2020-12-25] VITALS (8 sets, daily range): BP systolic 125–142; BP diastolic 66–68; PULSE 86–101; RESP 16–22; TEMP 36.9–37.6; O2SAT 90–99; BMI 35.0
[2020-12-25 05:52] LABS: Basophils Percent Auto 0.2 % (0.2-1.2); Eosinophils Absolute Auto 0.2 K/mm3 (0-0.3); Eosinophils Percent Auto 2.1 % (0-4.4); Hemoglobin 8.2 g/dL (14.0-18.0); Immature Granulocyte Absolute 0.03 K/mm3 (0.00-0.031); Immature Granulocyte Percent A 0.3 % (0-0.5); Lymphocytes Percent Auto 4.2 % (18.3-44.2); Mean Corpuscular HGB Conc 32.8 g/dl (32-36); Mean Corpuscular Hemoglobin 30.7 pg (26-34); Mean Corpuscular Volume 93.6 fl (80-100); Mean Platelet Volume 10.3 fl (7.4-10.4); Monocytes Absolute Auto 0.5 K/mm3 (0.1-0.6); Monocytes Percent Auto 5.6 % (2.6-8.5); Neutrophils Absolute Auto 8.3 K/mm3 (1.3-6.7); Neutrophils Percent Auto 87.6 % (45.5-73.1); Platelet Count Result 224 k/mm3 (150-375); Red Blood Count 2.67 M/mm3 (4.6-6.20); Red Cell Distribution Width 15.9 % (11.5-14.5); White Blood Count 9.5 K/mm3 (4.5-10.0)
[2020-12-25] MEDS: SODIUM CHLORIDE 0.9% IV 1,000 ML 125 ML IV CONT ×2 (06:13→16:00)
[2020-12-25 06:14] LABS: Anion Gap 11 mmol/L (8-16); Blood Urea Nitrogen 24 mg/dL (9-20); Carbon Dioxide 23 mmol/L (22-30); Chloride 98 mmol/L (98-107); Estimated CRCL calculation 51 ml/min; Estimated Glomerular Filt Rate 51; Glucose 106 mg/dL (65-110); Sodium 132 mmol/L (137-145)
--- NOTE | 2020-12-25 06:42 | PM.IMPN ---
Progress Note: A&P Assessment and Plan (1) Gastrostomy tube dysfunction: Code(s): K94.23 - Gastrostomy malfunction Status: Acute Assessment and Plan: Plan for modified barium swallow in AM. (2) Cholecystitis: Code(s): K81.9 - Cholecystitis, unspecified Status: Acute Assessment and Plan: . Patient has no overt clinical signs of cholecystitis at present. We will stop the zosyn. (3) Major depressive disorder: Code(s): F32.9 - Major depressive disorder, single episode, unspecified Status: Chronic Assessment and Plan: Continue with Lexapro (4) Polyneuropathy: Code(s): G62.9 - Polyneuropathy, unspecified Status: Acute Assessment and Plan: continue with Lyrica (5) Congestive heart failure: Code(s): I50.9 - Heart failure, unspecified Status: Chronic Assessment and Plan: Hold diuretic. Continue with Coreg only. (6) Hyperlipidemia: Code(s): E78.5 - Hyperlipidemia, unspecified Status: Chronic Assessment and Plan: continue fenofibrate (7) Chronic wound of extremity: Status: Chronic Assessment and Plan: wound Care has been consulted. This is a chronic diabetic foot ulcer. He has peripheral vascular disease. 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 (8) G tube feedings: Code(s): Z93.1 - Gastrostomy status Status: Acute Assessment and Plan: Currently on hold. Peg tube currently flushes adequately with gastric contents withdrawn suggesting proper functioning. We will schedule modified barium swallow in a.m. to see if the patient is able to maintain oral intake. (9) Anemia: Code(s): D64.9 - Anemia, unspecified Status: Chronic Assessment and Plan: continue to monitor. Check CBC daily. (10) Obstructive sleep apnea: Code(s): G47.33 - Obstructive sleep apnea (adult) (pediatric) Status: Chronic Assessment and Plan: CPAP machine auto titrate to home (11) Diabetes mellitus: Code(s): E11.9 - Type 2 diabetes mellitus without complications Status: Chronic Assessment and Plan: holding home metformin at this time. Will do sliding scale insulin. Long-acting insulin has been continued. Fasting blood glucose was 112. Accu-Chek in the 113-168 range. (12) Hypertension: Code(s): I10 - Essential (primary) hypertension Status: Chronic Assessment and Plan: Blood pressure improved to 142/68 after holding Coreg. (13) Acute kidney injury superimposed on chronic kidney disease: Code(s): N17.9 - Acute kidney failure, unspecified; N18.9 - Chronic kidney disease, unspecified Status: Acute Assessment and Plan: Creatinine stable around 1.4. This may be his baseline. (14) Hyponatremia: Code(s): E87.1 - Hypo-osmolality and hyponatremia Status: Acute Assessment and Plan: Improved with a sodium of 132 today. Continue to monitor. Subjective Date/time seen: 12/25/20 06:42 s: The patient was examined at the bedside. He is comfortable and denies any complaints. He passed a swallow test today. Review of Systems Review of Systems: All systems reviewed & are unremarkable except as noted in HPI and below Constitutional: Constitutional: Reports no additional constitutional complaints and Reports poor appetite Eyes: Eyes: Reports no additional eye complaints ENT: Reports system reviewed and no additional complaints, except as documented and Reports Normal hearing present Cardiovascular: Cardiovascular: Reports no additional cardiovascular complaints Respiratory: Respiratory: Reports no additional respiratory complaints Gastrointestinal: Gastrointestinal: Reports no additional gastrointestinal complaints, Reports abdominal pain, Reports nausea and Reports vomiting Genitourinary: Genitourinary: Reports no additional male genitourinary complaints Musculoskeletal
[2020-12-25 08:00] LABS: Glucose Point of Care 100 mg/dl (65-105)
[2020-12-25] MEDS: COLLAGENASE OINT 30 GM TUBE 1 APPLIC TOPICAL (08:21)
[2020-12-25 12:00] LABS: Glucose Point of Care 98 mg/dl (65-105)
[2020-12-25] MEDS: FLUTICASONE PROPIONATE 0.05% NA SPR 16 GM BTL (*BKC) 1 SPRAY NASAL (12:05)
[2020-12-25] MEDS: FENOFIBRATE NANOCRYSTALLIZED 145 MG TABLET PO (12:05)
[2020-12-25] MEDS: CYANOCOBALAMIN 1,000 MCG TABLET 1000 MCG PO (12:05)
[2020-12-25] MEDS: CHOLECALCIFEROL 1,000 UNITS TABLET 1000 UNITS PO (12:05)
[2020-12-25] MEDS: HEPARIN SODIUM 5,000 UNITS/ML VIAL 5000 UNITS SUB-Q ×2 (12:05→20:30)
[2020-12-25] MEDS: ROSUVASTATIN 10 MG TABLET 20 MG PO (12:05)
[2020-12-25] MEDS: ACIDOPHILUS/BULGARICUS CHEWABLE TABLET 1 TABLET PO ×2 (12:05→16:01)
[2020-12-25] MEDS: ESCITALOPRAM OXALATE 5 MG TABLET PO (12:06)
[2020-12-25] MEDS: THIAMINE HCL 100 MG TABLET PO (12:06)
[2020-12-25] MEDS: FERROUS SULFATE 324 MG TABLET PO ×2 (12:06→16:01)
[2020-12-25] MEDS: MULTIVITAMINS /C LUTEIN (CENTRUM SILVER) TABLET *BKC 1 TAB PO (12:06)
--- NOTE | 2020-12-25 13:13 | WPDGIPROGNO ---
Progress Note: A&P Assessment and Plan (1) Cholecystitis: Code(s): K81.9 - Cholecystitis, unspecified Status: Acute Assessment and Plan: HIDA scan normal suggesting does not have cholecystitis. Surgical follow-up for their opinion. Plan to advance to low-fat diet if they agree. (2) PEG (percutaneous endoscopic gastrostomy) status: Code(s): Z93.1 - Gastrostomy status Status: Acute Assessment and Plan: Peg tube functioning well and can be utilized. It is uncertain if this is necessary as he is eating adequately. Modified barium swallow may help determine the safety of eating orally. Subjective Date/time seen: 12/25/20 13:13 Patient comfortable at rest. No pain reported. Review of Systems Review of Systems: All systems reviewed & are unremarkable except as noted in HPI and below Exam Narrative: Abdomen is soft nontender. Peg tube functioning well in flushes adequately. HIDA scan noted to be normal. Objective Data Vital Signs Vital Signs: Vital Signs - 24 hr 12/24/20 15:44 12/24/20 20:39 12/24/20 22:00 Temperature 97.6 F 97.5 F L Pulse Rate 59 L 72 90 Respiratory Rate 20 18 Blood Pressure 115/57 L 104/53 L Pulse Oximetry 95 97 12/24/20 22:52 12/24/20 23:53 12/25/20 04:35 Temperature Pulse Rate 93 101 H Respiratory Rate 13 20 Blood Pressure Pulse Oximetry 92 94 93 12/25/20 06:00 Temperature 98.5 F Pulse Rate 99 Respiratory Rate 16 Blood Pressure 142/68 H Pulse Oximetry 94 Intake/Output Intake/Output: Intake & Output 12/23/20 12/24/20 12/24/20 12/25/20 00:59 00:59 23:59 23:59 Intake Total 1100 Balance 1100 Meds/Results Medications: Active Medications Generic Name Dose Route Start Last Admin Trade Name Freq PRN Reason Stop Dose Admin Acetaminophen 650 mg 12/23/20 22:04 Acetaminophen 325 Mg Tablet PO Q6H PRN Fever Albuterol 2 puff 12/23/20 22:04 Albuterol Sulfate (*Sp) Aerosol 1 Puff INHALATION QID PRN Shortness Of Breath Artificial Tears 2 drop 12/23/20 22:21 Artificial Tears Ophth Soln 15 Ml Bottle EACH EYE PRN PRN Dry Eye(S) Carvedilol 6.25 mg 12/23/20 21:00 12/24/20 20:39 Carvedilol 6.25 Mg Tablet PO 6.25 mg Q12H WEI Administration Collagenase 1 applic 12/24/20 09:00 12/25/20 08:21 Collagenase Oint 30 Gm Tube TOPICAL 1 applic DAILY WEI Administration Cyanocobalamin 1,000 mcg 12/24/20 09:00 12/25/20 12:05 Cyanocobalamin 1,000 Mcg Tablet PO 1,000 mcg DAILY WEI Administration Dextrose 12.5 gm 12/23/20 22:12 Dextrose 50% 25 Gm/50 Ml Syringe IV PUSH PRN PRN Hypoglycemia Protocol Escitalopram Oxalate 5 mg 12/24/20 09:00 12/25/20 12:06 Escitalopram Oxalate 5 Mg Tablet PO 5 mg DAILY WEI Administration Fenofibrate 145 mg 12/24/20 09:00 12/25/20 12:05 Fenofibrate Nanocrystallized 145 Mg Tablet PO 145 mg QAM WEI Administration Ferrous Sulfate 324 mg 12/24/20 09:00 12/25/20 12:06 Ferrous Sulfate 324 Mg Tablet PO 324 mg TID WEI Administration Fluticasone Propionate 1 spray 12/24/20 09:00 12/25/20 12:05 Fluticasone Propionate 0.05% Na Spr 16 Gm Btl (*Bk) NASAL 1 spray DAILY WEI Administration Glucagon 1 mg 12/23/20 22:12 Glucagon For Inj 1 Mg Vial IM PRN PRN Hypoglycemia Protocol Glucose 15 gm 12/23/20 22:12 Glucose Oral Gel 15 Gm Of Glucse In 37.5 Gm Tube PO PRN PRN Hypoglycemia Protocol Guaifenesin 200 mg 12/23/20 22:20 Guaifenesin 200 Mg/10 Ml Udc PO Q4H PRN Cough Heparin Sodium (Porcine) 5,000 units 12/24/20 09:00 12/25/20 12:05 Heparin Sodium 5,000 Units/Ml Vial SUB-Q 5,000 units Q12HR WEI Administration Piperacillin/Tazobactam/Dextrose 3.375 gm in 50 mls @ 100 mls/hr 12/23/20 23:00 12/25/20 12:33 Zosyn 3.375 Gm/D5w 50ml Pm IVPB 100 mls/hr Q6HR WEI Administration Sodium Chloride 1,
--- NOTE | 2020-12-25 15:58 | PM.PNGS ---
Progress Note: A&P Assessment and Plan (1) Cholecystitis: Code(s): K81.9 - Cholecystitis, unspecified Status: Acute Assessment and Plan: doing well, exam benign, HIDA normal, low fat diet Subjective Subjective Date/Time Seen: 12/25/20 15:58 feels ok, no acute issues, no pain Review of Systems Review of Systems: All systems reviewed & are unremarkable except as noted in HPI and below Exam Const: General: cooperative, comfortable and no acute distress Nutritional Appearance: obese Resp: Effort & Inspection: normal respiratory effort Auscultation: diminished lung sounds Cardio: Rate: regular rate Rhythm: regular rhythm GI: Inspection: normal to inspection GI Palp: No abdominal tenderness and No Tenderness to palpation present (GI) Other: PEG - C/D/I Objective Data Vital Signs Vital Signs: Vital Signs - 24 hr 12/24/20 20:39 12/24/20 22:00 12/24/20 22:52 Temperature 36.4 C L Pulse Rate 72 90 Respiratory Rate 18 Blood Pressure 104/53 L Pulse Oximetry 97 92 12/24/20 23:53 12/25/20 04:35 12/25/20 06:00 Temperature 36.9 C Pulse Rate 93 101 H 99 Respiratory Rate 13 20 16 Blood Pressure 142/68 H Pulse Oximetry 94 93 94 12/25/20 08:13 Temperature Pulse Rate Respiratory Rate Blood Pressure Pulse Oximetry 94 Intake/Output Intake/Output: Intake & Output 12/23/20 12/24/20 12/24/20 12/25/20 00:59 00:59 23:59 23:59 Intake Total 1150 Balance 1150 Meds/Results Medications: Active Medications Generic Name Dose Route Start Last Admin Trade Name Freq PRN Reason Stop Dose Admin Acetaminophen 650 mg 12/23/20 22:04 Acetaminophen 325 Mg Tablet PO Q6H PRN Fever Albuterol 2 puff 12/23/20 22:04 Albuterol Sulfate (*Sp) Aerosol 1 Puff INHALATION QID PRN Shortness Of Breath Artificial Tears 2 drop 12/23/20 22:21 Artificial Tears Ophth Soln 15 Ml Bottle EACH EYE PRN PRN Dry Eye(S) Carvedilol 6.25 mg 12/23/20 21:00 12/24/20 20:39 Carvedilol 6.25 Mg Tablet PO 6.25 mg Q12H WEI Administration Collagenase 1 applic 12/24/20 09:00 12/25/20 08:21 Collagenase Oint 30 Gm Tube TOPICAL 1 applic DAILY WEI Administration Cyanocobalamin 1,000 mcg 12/24/20 09:00 12/25/20 12:05 Cyanocobalamin 1,000 Mcg Tablet PO 1,000 mcg DAILY WEI Administration Dextrose 12.5 gm 12/23/20 22:12 Dextrose 50% 25 Gm/50 Ml Syringe IV PUSH PRN PRN Hypoglycemia Protocol Escitalopram Oxalate 5 mg 12/24/20 09:00 12/25/20 12:06 Escitalopram Oxalate 5 Mg Tablet PO 5 mg DAILY WEI Administration Fenofibrate 145 mg 12/24/20 09:00 12/25/20 12:05 Fenofibrate Nanocrystallized 145 Mg Tablet PO 145 mg QAM WEI Administration Ferrous Sulfate 324 mg 12/24/20 09:00 12/25/20 14:32 Ferrous Sulfate 324 Mg Tablet PO Not Given TID WEI Fluticasone Propionate 1 spray 12/24/20 09:00 12/25/20 12:05 Fluticasone Propionate 0.05% Na Spr 16 Gm Btl (*Bkc) NASAL 1 spray DAILY WEI Administration Glucagon 1 mg 12/23/20 22:12 Glucagon For Inj 1 Mg Vial IM PRN PRN Hypoglycemia Protocol Glucose 15 gm 12/23/20 22:12 Glucose Oral Gel 15 Gm Of Glucse In 37.5 Gm Tube PO PRN PRN Hypoglycemia Protocol Guaifenesin 200 mg 12/23/20 22:20 Guaifenesin 200 Mg/10 Ml Udc PO Q4H PRN Cough Heparin Sodium (Porcine) 5,000 units 12/24/20 09:00 12/25/20 12:05 Heparin Sodium 5,000 Units/Ml Vial SUB-Q 5,000 units Q12HR WEI Administration Piperacillin/Tazobactam/Dextrose 3.375 gm in 50 mls @ 100 mls/hr 12/23/20 23:00 12/25/20 13:40 Zosyn 3.375 Gm/D5w 50ml Pm IVPB Infused Q6HR WEI Infusion Sodium Chloride 1,000 mls @ 125 mls/hr 12/23/20 14:55 12/25/20 06:13 Normal Saline Iv IV CONT 125 mls/hr .Q8H WEI Administration Dextrose 1,000 mls @ 100 mls/hr 11/06/21 22:12 Dextrose 5% 1,000 Ml IVPB PRN PRN
[2020-12-25 16:35] LABS: Glucose Point of Care 137 mg/dl (65-105)
[2020-12-25] MEDS: carvediloL 6.25 MG TABLET PO (20:30)
[2020-12-25] MEDS: PREGABALIN (*CRX) 50 MG CAPSULE 100 MG PO (20:30)
[2020-12-25 21:14] LABS: Glucose Point of Care 173 mg/dl (65-105)
[2020-12-26] VITALS (8 sets, daily range): BP systolic 120–140; BP diastolic 58–70; PULSE 58–100; RESP 18–20; TEMP 36.4–37.1; O2SAT 91–97
[2020-12-26] MEDS: SODIUM CHLORIDE 0.9% IV 1,000 ML 125 ML IV CONT (00:03)
[2020-12-26 05:52] LABS: Basophils Percent Auto 0.3 % (0.2-1.2); Eosinophils Absolute Auto 0.1 K/mm3 (0-0.3); Eosinophils Percent Auto 2.1 % (0-4.4); Hematocrit 22.1 % (42.0-52.0); Hemoglobin 7.2 g/dL (14.0-18.0); Immature Granulocyte Absolute 0.03 K/mm3 (0.00-0.031); Immature Granulocyte Percent A 0.4 % (0-0.5); Lymphocytes Absolute Auto 0.77 K/mm3 (0.9-3.2); Lymphocytes Percent Auto 11.4 % (18.3-44.2); Mean Corpuscular HGB Conc 32.6 g/dl (32-36); Mean Corpuscular Volume 95.3 fl (80-100); Mean Platelet Volume 10.3 fl (7.4-10.4); Monocytes Absolute Auto 0.6 K/mm3 (0.1-0.6); Monocytes Percent Auto 8.7 % (2.6-8.5); Neutrophils Absolute Auto 5.2 K/mm3 (1.3-6.7); Neutrophils Percent Auto 77.1 % (45.5-73.1); Platelet Count Result 205 k/mm3 (150-375); Red Blood Count 2.32 M/mm3 (4.6-6.20); Red Cell Distribution Width 15.9 % (11.5-14.5); White Blood Count 6.8 K/mm3 (4.5-10.0)
[2020-12-26 06:08] LABS: Anion Gap 9 mmol/L (8-16); Blood Urea Nitrogen 25 mg/dL (9-20); Calcium 7.7 mg/dL (8.4-10.2); Carbon Dioxide 23 mmol/L (22-30); Chloride 100 mmol/L (98-107); Estimated CRCL calculation 55 ml/min; Estimated Glomerular Filt Rate 56; Glucose 136 mg/dL (65-110); Potassium 3.9 mmol/L (3.4-5.0); Sodium 132 mmol/L (137-145)
[2020-12-26 07:31] LABS: Glucose Point of Care 127 mg/dl (65-105)
--- NOTE | 2020-12-26 08:54 | PCSTNOTE ---
Please refer to the Modified Barium Swallow Evaluation in the EMR.
[2020-12-26] MEDS: COLLAGENASE OINT 30 GM TUBE 1 APPLIC TOPICAL (09:13)
[2020-12-26] MEDS: carvediloL 6.25 MG TABLET PO ×2 (09:19→20:41)
[2020-12-26] MEDS: ACIDOPHILUS/BULGARICUS CHEWABLE TABLET 1 TABLET PO ×2 (09:19→17:03)
[2020-12-26] MEDS: FENOFIBRATE NANOCRYSTALLIZED 145 MG TABLET PO (09:20)
[2020-12-26] MEDS: CHOLECALCIFEROL 1,000 UNITS TABLET 1000 UNITS PO (09:20)
[2020-12-26] MEDS: CYANOCOBALAMIN 1,000 MCG TABLET 1000 MCG PO (09:20)
[2020-12-26] MEDS: ESCITALOPRAM OXALATE 5 MG TABLET PO (09:20)
[2020-12-26] MEDS: FLUTICASONE PROPIONATE 0.05% NA SPR 16 GM BTL (*BKC) 1 SPRAY NASAL (09:21)
[2020-12-26] MEDS: THIAMINE HCL 100 MG TABLET PO (09:21)
[2020-12-26] MEDS: HEPARIN SODIUM 5,000 UNITS/ML VIAL 5000 UNITS SUB-Q ×2 (09:21→20:41)
[2020-12-26] MEDS: FERROUS SULFATE 324 MG TABLET PO ×3 (09:21→17:03)
[2020-12-26] MEDS: ROSUVASTATIN 10 MG TABLET 20 MG PO (09:21)
[2020-12-26] MEDS: PREGABALIN (*CRX) 50 MG CAPSULE PO (09:36)
--- NOTE | 2020-12-26 10:40 | PM.IMPN ---
Progress Note: A&P Assessment and Plan (1) Gastrostomy tube dysfunction: Code(s): K94.23 - Gastrostomy malfunction Status: Acute Assessment and Plan: Patient underwent modified barium swallow: Trace laryngeal penetration without aspiration. Continue soft and bite diet with supervision. GI evaluation for PEG removal. (2) Cholecystitis: Code(s): K81.9 - Cholecystitis, unspecified Status: Acute Assessment and Plan: . Patient has no overt clinical signs of cholecystitis at present. We will stop the zosyn. (3) Major depressive disorder: Code(s): F32.9 - Major depressive disorder, single episode, unspecified Status: Chronic Assessment and Plan: Continue with Lexapro (4) Polyneuropathy: Code(s): G62.9 - Polyneuropathy, unspecified Status: Acute Assessment and Plan: continue with Lyrica (5) Congestive heart failure: Code(s): I50.9 - Heart failure, unspecified Status: Chronic Assessment and Plan: Hold diuretic. Continue with Coreg only. (6) Hyperlipidemia: Code(s): E78.5 - Hyperlipidemia, unspecified Status: Chronic Assessment and Plan: continue fenofibrate (7) Chronic wound of extremity: Status: Chronic Assessment and Plan: Dressing per wound care. This is a chronic diabetic foot ulcer. He has peripheral vascular disease. 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 (8) G tube feedings: Code(s): Z93.1 - Gastrostomy status Status: Acute Assessment and Plan: Currently tolerating softened by diet with regular liquid. Patient needs supervision during meals. (9) Anemia: Code(s): D64.9 - Anemia, unspecified Status: Chronic Assessment and Plan: Hemoglobin dropped by 1 point from 8.2-7.2. Send iron panel, B12 and folate. Check stool occult blood. (10) Obstructive sleep apnea: Code(s): G47.33 - Obstructive sleep apnea (adult) (pediatric) Status: Chronic Assessment and Plan: CPAP machine auto titrate to home (11) Diabetes mellitus: Code(s): E11.9 - Type 2 diabetes mellitus without complications Status: Chronic Assessment and Plan: holding home metformin at this time. Will do sliding scale insulin. Long-acting insulin has been continued. Fasting blood glucose was 136. Accu-Chek 127 (12) Hypertension: Code(s): I10 - Essential (primary) hypertension Status: Chronic Assessment and Plan: Blood pressure 120/59 (13) Acute kidney injury superimposed on chronic kidney disease: Code(s): N17.9 - Acute kidney failure, unspecified; N18.9 - Chronic kidney disease, unspecified Status: Acute Assessment and Plan: Creatinine stable around 1.3-1.4. This may be his baseline. (14) Hyponatremia: Code(s): E87.1 - Hypo-osmolality and hyponatremia Status: Acute Assessment and Plan: Improved with a sodium of 132 today. Continue to monitor. (15) jail resident: Code(s): Z59.3 - Problems related to living in residential institution Status: Acute Assessment and Plan: suction worker evaluation for discharge to [facility] Subjective Date/time seen: 12/26/20 10:40 S: Patient was examined at the bedside. There are no overnight events. He underwent modified barium swallow today. He did not offer any complaints. There was no evidence of distress. Review of Systems Review of Systems: All systems reviewed & are unremarkable except as noted in HPI and below Constitutional: Constitutional: Reports no additional constitutional complaints and Reports poor appetite Eyes: Eyes: Reports no additional eye complaints ENT: Reports system reviewed and no additional complaints, except as documented and Reports Normal hearing present Cardiovascular: Cardiovascular: Reports no additional cardiovascular complaints Respiratory: Respir
[2020-12-26 11:31] LABS: Glucose Point of Care 218 mg/dl (65-105)
[2020-12-26] MEDS: INSULIN ASPART (*BKC) 100 UNITS/ML SUB-Q (12:06)
--- NOTE | 2020-12-26 14:47 | WPDGIPROGNO ---
Progress Note: A&P Assessment and Plan (1) PEG (percutaneous endoscopic gastrostomy) status: Code(s): Z93.1 - Gastrostomy status Status: Acute Assessment and Plan: PEG tube appears to be functioning adequately at present. I would suggest allowing diet and keeping PEG tube in reserve for period of time perhaps 1 month. Removed PEG tube only if determined to be absolutely necessary after this interval of time. Okay with me for patient to return [facility] when okay with primary care service. (2) Abnormal CT scan: Code(s): R93.89 - Abnormal findings on diagnostic imaging of other specified body structures Status: Acute Assessment and Plan: CT scan suggested cholecystitis. However patient asymptomatic and HIDA scan normal. Appreciate surgical evaluation. Would defer gallbladder surgery at this time. Subjective Date/time seen: 12/26/20 14:47 Pt had no aspiration with MBS,. only trace laryngeal penetration, appears to tolerate diet so far Review of Systems Review of Systems: ROS unobtainable: Yes unobtainable due to mental status Exam Narrative: Abdomen soft and nontender, no mass, peg tube functioning well Objective Data Vital Signs Vital Signs: Vital Signs - 24 hr 12/25/20 20:12 12/25/20 20:30 12/25/20 22:21 Temperature 99.6 F Pulse Rate 90 86 Respiratory Rate 22 H Blood Pressure 125/67 Pulse Oximetry 99 92 12/25/20 22:58 12/26/20 03:14 12/26/20 08:00 Temperature 97.5 F L Pulse Rate 58 L Respiratory Rate 18 Blood Pressure 120/59 L Pulse Oximetry 92 96 96 12/26/20 09:19 12/26/20 14:00 Temperature 98.3 F Pulse Rate 80 94 Respiratory Rate 18 Blood Pressure 122/58 L Pulse Oximetry 97 Intake/Output Intake/Output: Intake & Output 12/24/20 12/24/20 12/25/20 12/26/20 00:59 23:59 23:59 23:59 Intake Total 3400 1710 Balance 3400 1710 Meds/Results Medications: Active Medications Generic Name Dose Route Start Last Admin Trade Name Freq PRN Reason Stop Dose Admin Acetaminophen 650 mg 12/23/20 22:04 Acetaminophen 325 Mg Tablet PO Q6H PRN Fever Albuterol 2 puff 12/23/20 22:04 Albuterol Sulfate (*Sp) Aerosol 1 Puff INHALATION QID PRN Shortness Of Breath Artificial Tears 2 drop 12/23/20 22:21 Artificial Tears Ophth Soln 15 Ml Bottle EACH EYE PRN PRN Dry Eye(S) Carvedilol 6.25 mg 12/23/20 21:00 12/26/20 09:19 Carvedilol 6.25 Mg Tablet PO 6.25 mg Q12H WEI Administration Collagenase 1 applic 12/24/20 09:00 12/26/20 09:13 Collagenase Oint 30 Gm Tube TOPICAL 1 applic DAILY WEI Administration Cyanocobalamin 1,000 mcg 12/24/20 09:00 12/26/20 09:20 Cyanocobalamin 1,000 Mcg Tablet PO 1,000 mcg DAILY WEI Administration Dextrose 12.5 gm 12/23/20 22:12 Dextrose 50% 25 Gm/50 Ml Syringe IV PUSH PRN PRN Hypoglycemia Protocol Escitalopram Oxalate 5 mg 12/24/20 09:00 12/26/20 09:20 Escitalopram Oxalate 5 Mg Tablet PO 5 mg DAILY WEI Administration Fenofibrate 145 mg 12/24/20 09:00 12/26/20 09:20 Fenofibrate Nanocrystallized 145 Mg Tablet PO 145 mg QAM WEI Administration Ferrous Sulfate 324 mg 12/24/20 09:00 12/26/20 12:11 Ferrous Sulfate 324 Mg Tablet PO 324 mg TID WEI Administration Fluticasone Propionate 1 spray 12/24/20 09:00 12/26/20 09:21 Fluticasone Propionate 0.05% Na Spr 16 Gm Btl (*Bkc) NASAL 1 spray DAILY WEI Administration Glucagon 1 mg 12/23/20 22:12 Glucagon For Inj 1 Mg Vial IM PRN PRN Hypoglycemia Protocol Glucose 15 gm 12/23/20 22:12 Glucose Oral Gel 15 Gm Of Glucse In 37.5 Gm Tube PO PRN PRN Hypoglycemia Protocol Guaifenesin 200 mg 12/23/20 22:20 Guaifenesin 200 Mg/10 Ml Udc PO Q4H PRN Cough Heparin Sodium (Porcine) 5,000 units 12/24/20 09:00 12/26/20 09:21 Heparin Sodium 5,000 Units/Ml Vial SUB-Q 5,000 uni
--- NOTE | 2020-12-26 15:31 | PM.DS ---
DS: Admitting Diagnosis Discharge Date 12/26/2020. Admitting Diagnosis Dysfunctional G-tube Cholecystitis: DS: Discharge Diagnosis Discharge Diagnosis (1) Gastrostomy tube dysfunction: Code(s): K94.23 - Gastrostomy malfunction Status: Acute Assessment and Plan: G-tube was not functioning well without issues throughout this admission. Patient underwent modified barium swallow: Trace laryngeal penetration without aspiration. Continue soft and bite diet with supervision. GI evaluation for PEG removal if continuous improvement in 4 weeks. (2) Cholecystitis: Code(s): K81.9 - Cholecystitis, unspecified Status: Acute Assessment and Plan: . Patient has no overt clinical signs of cholecystitis at present. Zosyn was stopped. (3) Major depressive disorder: Code(s): F32.9 - Major depressive disorder, single episode, unspecified Status: Chronic Assessment and Plan: Lexapro was continued. (4) Polyneuropathy: Code(s): G62.9 - Polyneuropathy, unspecified Status: Acute Assessment and Plan: Lyrica was continued (5) Congestive heart failure: Code(s): I50.9 - Heart failure, unspecified Status: Chronic Assessment and Plan: Diuretic was held and patient was managed with Coreg only. (6) Hyperlipidemia: Code(s): E78.5 - Hyperlipidemia, unspecified Status: Chronic Assessment and Plan: Fenofibrate was continued. (7) Chronic wound of extremity: Status: Chronic Assessment and Plan: Patient presented with a chronic diabetic foot ulcer. He has peripheral vascular disease. 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 Patient was managed with wound care. (8) G tube feedings: Code(s): Z93.1 - Gastrostomy status Status: Acute Assessment and Plan: Currently tolerating softened by diet with regular liquid. Patient needs supervision during meals. G-tube functioning properly. G-tube feedings were held in view of adequate oral intake. Consider G-tube removal in 4 weeks, if there is continuous improvement. (9) Anemia: Code(s): D64.9 - Anemia, unspecified Status: Chronic Assessment and Plan: Hemoglobin dropped by 1 point from 8.2-7.2. Send iron panel, B12 and folate. Check stool occult blood. (10) Obstructive sleep apnea: Code(s): G47.33 - Obstructive sleep apnea (adult) (pediatric) Status: Chronic Assessment and Plan: CPAP machine auto titrate to home (11) Diabetes mellitus: Code(s): E11.9 - Type 2 diabetes mellitus without complications Status: Chronic Assessment and Plan: holding home metformin at this time. Will do sliding scale insulin. Long-acting insulin has been continued. Fasting blood glucose was 136. Accu-Chek 127 (12) Hypertension: Code(s): I10 - Essential (primary) hypertension Status: Chronic Assessment and Plan: Blood pressure 120/59 (13) Acute kidney injury superimposed on chronic kidney disease: Code(s): N17.9 - Acute kidney failure, unspecified; N18.9 - Chronic kidney disease, unspecified Status: Acute Assessment and Plan: Creatinine stable around 1.3-1.4. This may be his baseline. (14) Hyponatremia: Code(s): E87.1 - Hypo-osmolality and hyponatremia Status: Acute Assessment and Plan: Improved with a sodium of 132 today. Continue to monitor. 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 Hospital Course: Please refer to the admission H&P. Briefly,this is a 65-year-old male patient who has a history of iva
[2020-12-26] MEDS: MULTIVITAMINS /C LUTEIN (CENTRUM SILVER) TABLET *BKC 1 TAB PO (16:24)
[2020-12-26 16:36] LABS: Glucose Point of Care 225 mg/dl (65-105)
[2020-12-26] MEDS: PREGABALIN (*CRX) 50 MG CAPSULE 100 MG PO (20:45)
[2020-12-26 21:30] LABS: Glucose Point of Care 212 mg/dl (65-105)
== END 2020-12-26 21:25 ==
LOC: ANHED 12:27 → ANH2MED 23:42
PROVIDERS: Admitting Provider Internal Medicine; Emergency Provider General Practice; PCP Family Medicine; Visit Provider Internal Medicine
DX: K94.23 Gastrostomy malfunction (principal); N17.9 Acute kidney failure, unspecified; E11.42 Type 2 diabetes mellitus with diabetic polyneuropathy; E11.51 Type 2 diabetes mellitus with diabetic peripheral angiopathy without gangrene; E11.22 Type 2 diabetes mellitus with diabetic chronic kidney disease; E11.621 Type 2 diabetes mellitus with foot ulcer; E78.5 Hyperlipidemia, unspecified; E87.1 Hypo-osmolality and hyponatremia; D64.9 Anemia, unspecified; F32.9 Major depressive disorder, single episode, unspecified; G47.33 Obstructive sleep apnea (adult) (pediatric); R13.10 Dysphagia, unspecified; L97.429 Non-pressure chronic ulcer of left heel and midfoot with unspecified severity; I50.9 Heart failure, unspecified; I13.0 Hypertensive heart and chronic kidney disease with heart failure and stage 1 through stage 4 chronic kidney disease, or unspecified chronic kidney disease; N18.9 Chronic kidney disease, unspecified; R10.9 Unspecified abdominal pain; Z79.4 Long term (current) use of insulin; Z89.611 Acquired absence of right leg above knee; Z79.899 Other long term (current) drug therapy
CPT/HCPCS: 36415; 51701; 74177; 76705; 78226; 80048; 80053; 80074; 80307; 81001; 82948; 83605; 83690; 85025; 92610; 92611; 94660; 96361; 96365; 96366; 96372; 96375; 99285; A9270; A9537; G0378; J1644; J1815; J2270; J2543; J7030; Q9967

== ENCOUNTER 2021-01-17 06:40 | Inpatient (IN) | payer MEDICARE, MEDICAID, SELFPAY ==
[2021-01-17] VITALS (8 sets, daily range): BP systolic 103–128; BP diastolic 52–66; PULSE 75–101; RESP 12–18; TEMP 36.1–37.5; O2SAT 95–99
--- NOTE | ~2021-01-17 | US_ITS ---
US right upper quadrant INDICATION: Right upper quadrant abdominal pain PROCEDURE: Realtime right upper abdominal ultrasound. COMPARISON: No prior studies for comparison. FINDINGS: The pancreas is normal without focal mass or pancreatic ductal dilation. Liver echotexture is normal without focal mass or intrahepatic biliary dilatation. There is normal directional flow i n the portal vein. Gallbladder wall is mildly thickened measuring 4 mm. No definite gallstones. Common bile duct measur es 4 mm. No sonographic Head's sign. IMPRESSION: 1: Mild gallbladder wall thickening. This could indicate interstitial edema, chronic liver disease or chronic cholecystitis. Reviewed, dictated and finalized at location B. RER IMPRESSION: 1: Mild gallbladder wall thickening. This could indicate interstitial edema, ch ronic liver disease or chronic cholecystitis.
--- NOTE | ~2021-01-17 | XR_ITS ---
EXAMINATION: XR G tube evaluation w imaging DATE: 01/18/2021 07:33 INDICATION: Abdominal pain and vomiting. Prior G-tube malfunction. TECHNIQUE: Portable AP supine view of the abdomen was obtained following administration of 50 mL of w ater-soluble contrast into the patient's existing percutaneous gastrostomy tube. COMPARISON: CT dated 01/17/2021 FINDINGS: Percutaneous gastrostomy tube with bulb within the body of the stomach. Contrast extends throughout t he stomach and at the proximal duodenum. Relative paucity of bowel gas throughout the visualized abdo men and pelvis. Multiple small round densities projecting over the left abdomen without correlate on prior CT likely representing droplets of contrast external to the patient. Lung bases are clear. IMPRESSION: 1. Percutaneous gastrostomy tube bulb in the stomach lung with injected contrast. Reviewed, dictated and finalized at location A. GENERATOR OPERATOR IMPRESSION: 1. Percutaneous gastrostomy tube bulb in the stomach lung with injected contras t.
--- NOTE | ~2021-01-17 | NM_ITS ---
EXAMINATION: NM hepatobiliary wo pharm EXAM DATE: 01/18/2021 13:01 INDICATION: Abdominal pain, probable cholelithiasis. TECHNIQUE: 5 mCi Tc-99m mebrofenin (Choletec) was administered intravenously. Scintigraphic images o f the abdomen were obtained for one hour. To obtained gallbladder ejection fraction, patient drank 8 ounces of Ensure and imaging of the gallbladder obtained for one hour following ingestion. Correlati on was made with CT abdomen 01/17/2021, and right upper quadrant sonogram 01/17. FINDINGS: There is normal clearance of radiotracer from the blood pool. There is homogeneous tracer u ptake by the liver. Activity progresses to the bowel. No gallbladder activity was demonstrated durin g the 1.5 hours of imaging. IMPRESSION: Nonfilling gallbladder at 1.5 hours, acute or chronic cholecystitis. Delayed imaging cou ld be obtained if indicated clinically. Reviewed, dictated and finalized at location A. RVISOR MENDING IMPRESSION: Nonfilling gallbladder at 1.5 hours, acute or chronic cholecystiti s. Delayed imaging could be obtained if indicated clinically.
--- NOTE | ~2021-01-17 | CT_ITS ---
EXAMINATION: CT abdomen pelvis w con DATE: 01/17/2021 11:12 INDICATION: Abdomen pain TECHNIQUE: Computed tomography (CT) of the abdomen and pelvis was performed with 100 cc Omnipaque 350 intravenous contrast. The dose-length product was 1294.27 mGy-cm. Automated exposure control and ite rative reconstruction technique were employed. COMPARISON: CT dated 12/23/2020. FINDINGS: Small pleural effusions. Heart size normal. There are hypoechoic densities in the gallbladd er lumen which most likely represent stones. There is mild periportal edema. The spleen, pancreas, ad renal glands and kidneys are unremarkable. There is mild mesenteric edema. There is a gastric tube. N onobstructive bowel gas pattern. There is diffuse bladder wall thickening, compatible with cystitis u ntil proven otherwise. Small fat-containing umbilical hernia. There is mild lumbar spondylosis with g rade 1 1 spondylolisthesis at L5-S1 secondary to spondylolysis. No free air or free fluid. There is m ild osteoarthritis of the hips. IMPRESSION: 1. Bladder wall thickening, suspicious for cystitis. Correlate with urinalysis. 2: Probable cholelithiasis with mild periportal edema. 3: Small pleural effusions. Reviewed, dictated and finalized at location B. UCTION CONTROL ANALYST
--- NOTE | 2021-01-17 07:06 | ED.RECABL ---
HPI - Recheck/Abnormal Lab/Rx General Chief Complaint: Recheck/Abnormal Lab/Rx Stated Complaint: ABN Labs Time Seen by Provider: 01/17/21 07:06 Source: patient Mode of arrival: EMS Limitations: clinical condition History of Present Illness HPI narrative: The patient is a 65-year-old male patient who has a history of diabetes, CHF, and pressure ulcer, g tube, presenting to the emergency department for evaluation of abnormal labs, upper abdominal pain. Patient reports that he has had upper abdominal pain over the past several days. Patient reports that abdominal pressure in the upper abdomen without radiation to the back. No chest pain. Patient reports nausea without vomiting. He reports difficulty tolerating oral intake secondary to the pain. Patient denies fever or chills, but patient is difficult to obtain history from at this time. He is alert to person, place, to time but has difficulty providing details to me regarding his timeline of symptoms. Per chart review, patient was recently admitted approximately 3 weeks ago for similar symptoms, found to have imaging concerning for acute cholecystitis, but then proceeded to have normal HIDA scan, further work-up, and patient was discharged back to nursing facility. Apparently, patient has had a worsening transaminitis found on outpatient labs. Thus he was referred here secondary to his pain and changing laboratory studies. Related Data Home Medications Medication Instructions Recorded Confirmed Adults Multivitamin 1 tablet PO DAILY 12/23/20 12/23/20 acetaminophen 650 mg PO Q6H PRN 12/23/20 12/23/20 acidophilus-sporogenes 1 tablet PO BID 12/23/20 12/23/20 albuterol sulfate 2 puff INHALATION QID PRN 12/23/20 12/23/20 artificial tears solution 2 drp OPHTHALMIC (EYE) PRN PRN 12/23/20 12/23/20 carboxymethylcellulose sodium 1 drp EACH EYE 4-6XD PRN 12/23/20 12/23/20 carvedilol 6.25 mg PO Q12H 12/23/20 12/23/20 cefepime 2 g IV Q12H 12/23/20 12/23/20 cholecalciferol (vitamin D3) 125 mcg PO DAILY 12/23/20 12/23/20 collagenase clostridium histo. 1 applic TOPICAL DAILY 12/23/20 12/23/20 cyanocobalamin (vitamin B-12) 1,000 mcg PO DAILY 12/23/20 12/23/20 [Vitamin B-12] escitalopram oxalate 5 mg PO DAILY 12/23/20 12/23/20 esomeprazole magnesium 40 mg PO DAILY 12/23/20 12/23/20 fenofibrate 145 mg PO DAILY 12/23/20 12/23/20 ferrous sulfate 325 mg PO TID 12/23/20 12/23/20 fluticasone propionate [Allergy 1 spray INTRANASAL DAILY 12/23/20 12/23/20 Relief (fluticasone)] furosemide 20 mg PO DAILY 12/23/20 12/23/20 guaifenesin 200 mg PO Q4H PRN 12/23/20 12/23/20 insulin aspart U-100 [Novolog 4 unit SUBCUT ACHS 12/23/20 12/23/20 U-100 Insulin aspart] loperamide 2 mg PO Q4H PRN 12/23/20 12/23/20 metformin 1,000 mg PO BID 12/23/20 12/23/20 nitroglycerin 0.4 mg SUBLINGUAL Q5-15M PRN 12/23/20 12/23/20 ondansetron HCl [Zofran] 4 mg PO Q6H PRN 12/23/20 12/23/20 rosuvastatin 20 mg PO DAILY 12/23/20 12/23/20 thiamine HCl (vitamin B1) [Vitamin 100 mg PO DAILY 12/23/20 12/23/20 B-1] Allergies Allergy/AdvReac Type Severity Reaction Status Date / Time No Known Allergies Allergy Unverified 12/28/20 09:10 Review of Systems Review of Systems: ROS unobtainable: Yes unobtainable due to mental status (Pt is able to provide some history, but does seem somewhat sleepy. ) [facility] Past Medical History Medical History Chronic anemia Chronic hyponatremia Congestive heart failure Echocardiogram on 11/18/2020 done at an outside facility showed normal left ventricular size and function with an EF of 55 to 60%, mild concentric LVH, [id number] AR, mild MR, and trace to mild TR. Apical wall is hypokinetic. 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
--- NOTE | 2021-01-17 07:47 | ECG_ITS ---
Measurements Intervals [place] Rate: 90 P: 60 HI: 206 QRS: -8 QRSD: 83 T: 10 QT: 371 QTc: 455 Interpretive Statements SINUS RHYTHM EARLY PRECORDIAL R/S TRANSITION INFERIOR INFARCT, AGE INDETERMINATE BASELINE WANDER- V4-V5 ABNORMAL ECG Electronically Signed On 01-17-2021 12:37:01 FUEL DISTRIBUTION SYSTEM OPERATOR by Spencer Young D.O.
[2021-01-17] MEDS: SODIUM CHLORIDE 0.9% IV 1,000 ML 999 ML IV CONT (08:00)
[2021-01-17] MEDS: MORPHINE SULFATE (*CRX) 4 MG/ML INJ 2 MG IV PUSH (08:43)
[2021-01-17] MEDS: ONDANSETRON INJ 4 MG/2 ML VIAL IV PUSH (08:44)
[2021-01-17 08:48] LABS: Basophils Percent Auto 0.2 % (0.2-1.2); Eosinophils Absolute Auto 0.3 K/mm3 (0-0.3); Eosinophils Percent Auto 3.5 % (0-4.4); Hematocrit 27.1 % (42.0-52.0); Immature Granulocyte Absolute 0.05 K/mm3 (0.00-0.031); Immature Granulocyte Percent A 0.5 % (0-0.5); Lymphocytes Absolute Auto 1.01 K/mm3 (0.9-3.2); Lymphocytes Percent Auto 10.8 % (18.3-44.2); Mean Corpuscular HGB Conc 33.2 g/dl (32-36); Mean Corpuscular Hemoglobin 29.7 pg (26-34); Mean Corpuscular Volume 89.4 fl (80-100); Monocytes Absolute Auto 0.6 K/mm3 (0.1-0.6); Monocytes Percent Auto 6.7 % (2.6-8.5); Neutrophils Absolute Auto 7.4 K/mm3 (1.3-6.7); Neutrophils Percent Auto 78.3 % (45.5-73.1); Platelet Count Result 391 k/mm3 (150-375); Red Blood Count 3.03 M/mm3 (4.6-6.20); Red Cell Distribution Width 14.4 % (11.5-14.5); White Blood Count 9.4 K/mm3 (4.5-10.0)
[2021-01-17 08:58] LABS: Lactic Acid Reflex 0.8 mmol/L (0.7-2.1)
[2021-01-17 08:59] LABS: Alanine Aminotransferase 77 U/L (4-50); Albumin Level 3.4 g/dL (3.5-5.1); Alkaline Phosphatase 433 U/L (38-126); Anion Gap 7 mmol/L (8-16); Aspartate Amino Transferase 94 U/L (17-59); Bilirubin,Total 1.3 mg/dL (0.2-1.3); Blood Urea Nitrogen 25 mg/dL (9-20); Calcium 8.9 mg/dL (8.4-10.2); Carbon Dioxide 26 mmol/L (22-30); Chloride 94 mmol/L (98-107); Estimated CRCL calculation 52 ml/min; Estimated Glomerular Filt Rate > 60; Glucose 123 mg/dL (65-110); Lipase 404 U/L (23-300); Potassium 4.5 mmol/L (3.4-5.0); Sodium 127 mmol/L (137-145)
[2021-01-17 09:04] LABS: Prothrombin Time 13.5 Seconds (11.1-14.7)
[2021-01-17 09:11] LABS: Troponin I 0.018 ng/mL (0.000-0.034)
[2021-01-17 10:30] LABS: Add Urine Microscopic? YES; Appearance Urine Clear (Clear); Bilirubin Urine Negative (Negative); Blood Urine Negative (Negative); Color Urine Yellow (Yellow); Glucose Urine UA Negative (Negative); Ketones Urine Negative (Negative); Leukocyte Esterase Ur Negative LEU/UL (Negative); Mucus Urine Rare /lpf; Nitrate Urine Negative (Negative); Protein Urine Negative (Negative); RBC Urine 0-2 /hpf (0-2); Specific Grav Ur 1.012 (1.001-1.035); Squamous Epithelial Cell Urine Rare /hpf (Few); WBC Urine 0-3 /hpf
[2021-01-17] MEDS: SODIUM CHLORIDE 0.9% IV 1,000 ML 75 ML IV CONT (12:30)
--- NOTE | 2021-01-17 12:45 | PM.IMHP ---
H&P: HPI History of Present Illness Date/Time: 01/17/21 12:45 Chief Complaint: Abdominal pain. Narrative: This is a 65-year-old male with coronary artery disease, hypertension, hyperlipidemia and insulin-dependent type 2 diabetes who presented to the emergency department earlier today via EMS from [facility] for evaluation of abdominal pain. He is a poor historian and does not answer many oh my questions verbally but he does nod and shake his head appropriately and follows commands. As such a majority of the following is obtained via a review of his electronic medical records. He is known to the hospitalist service with a recent admission last month at which time he was brought in for abdominal pain and possible PEG tube dysfunction. Imaging at that time suggested possible cholecystitis however his exam was benign and HIDA scan was normal and it was suggested that he eat a low-fat diet. There were no issues with his G-tube during this stay and a modified barium swallow showed trace laryngeal penetration without aspiration thus there are hopes that the tube can be removed soon. In any event, he reportedly has been complaining once again of abdominal pain for the last several days and at the time my evaluation he poor eats to the mid-right upper quadrant and right flank regions and tells me it feels like there is pressure there. He also indicates that he is having discomfort around the PEG tube he does not further qualify. He has been nauseated and not really wanting to eat much. He is not certain if food makes the pain worse. He denies vomiting. No fever, chills, or sweats. Review of Systems Review of Systems: Twelve systems were reviewed but are limited as he just does not answer some questions. He denies cold and flu symptoms. No chest pain or shortness of breath. No dysuria. Except as documented, all other systems were reviewed and are negative. [facility] Past Medical History Medical History Chronic anemia Chronic hyponatremia Congestive heart failure Echocardiogram on 11/18/2020 done at an outside facility showed normal left ventricular size and function with an EF of 55 to 60%, mild concentric LVH, [id number]-[id number] AR, mild MR, and trace to mild TR. Apical wall is hypokinetic. 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 He is and has no children. Disabled. Nonsmoker. No alcohol or illicit substance use. Atutg-eh-kebzosam: Nenita Dobbs ([phone]). Code status: Do not resuscitate. Meds Home Medications and Allergies Home Medications Medication Instructions Recorded Confirmed Type insulin aspart U-100 100 unit/mL See Rx Instructions SUB-Q TID #15 05/17/19 12/23/20 Rx (3 mL) subcutaneous pen ml hydrocodone 5 mg-acetaminophen 325 1 tablet PO Q6H PRN #120 tablet 06/28/19 12/23/20 Rx mg tablet pregabalin 100 mg capsule See Rx Instructions PO BID #90 cap 06/16/20 12/23/20 Rx Adults Multivitamin 1 tablet PO DAILY 12/23/20 12/23/20 History acetaminophen 650 mg PO Q6H PRN 12/23/20 12/23/20 History acidophilus-sporogenes 1 tablet PO BID
--- NOTE | 2021-01-17 14:36 | PM.CNGS ---
Assessment and Plan Assessment and plan (1) Abnormal CT of the abdomen: Code(s): R93.5 - Abnormal findings on diagnostic imaging of other abdominal regions, including retroperitoneum Status: Acute Assessment and Plan: CT scan and RUQ ultrasound reviewed and discussed in detail with the patient. He has evidence of mild gallbladder wall thickening and probable cholelithiasis. WBC normal. He is no longer having any abdominal pain and is completely non-tender in the upper abdomen on my exam. LFTs are elevated, but AST/ALT have come down since his last admission. No CBD dilatation on imaging. Etiology for his abdominal pain is still unclear at this time. Will get a Gastrografin study through his G-tube to confirm placement and rule this out as a cause for his pain. Low suspicion for acute cholecystitis and no plans for surgical intervention at this time. Will continue with conservative treatment and monitor with serial abdominal exams and trend labs. Thank you for allowing us to see the patient in consultation and we will continue to follow along with you. (2) Abdominal pain: Code(s): R10.9 - Unspecified abdominal pain Status: Acute Assessment and Plan: Resolved. Etiology unclear. See plan above. (3) Elevated LFTs: Code(s): R79.89 - Other specified abnormal findings of blood chemistry Status: Acute Assessment and Plan: AST, ALT, and alk phos elevated on admission. Normal total bilirubin. AST and ALT are actually lower than on his previous hospitalization about 1 month ago. Hepatitis panel on last admission negative. Trend labs. (4) Chronic hyponatremia: Code(s): E87.1 - Hypo-osmolality and hyponatremia Status: Acute (5) Insulin dependent type 2 diabetes mellitus: Code(s): E11.9 - Type 2 diabetes mellitus without complications; Z79.4 - termite control representative (current) use of insulin Status: Acute (6) PEG (percutaneous endoscopic gastrostomy) status: Code(s): Z93.1 - Gastrostomy status Status: Acute Assessment and Plan: Will confirm placement with Gastrografin study. (7) Obesity (BMI 30-39.9): Code(s): E66.9 - Obesity, unspecified Status: Acute (8) Obstructive sleep apnea: Code(s): G47.33 - Obstructive sleep apnea (adult) (pediatric) Status: Chronic (9) Congestive heart failure: Code(s): I50.9 - Heart failure, unspecified Status: Chronic (10) Chronic wound of extremity: Status: Chronic Assessment and Plan: Chronic left heel ulcer appears stable. Not the reason for his hospitalization. Continue local wound care and elevate heels off bed. No indication for surgical intervention. Additional Plan I have discussed the patient's case and plan of care with Dr. Hines. History of Present Illness Consult details Consult date: 01/17/21 Reason for consult: other (Cholelithiasis with possible cholecystitis, transaminitis) Requesting physician: Olya Collins MD Narrative: This is a 65-year-old obese male with a history of coronary artery disease, hypertension, hyperlipidemia, and insulin-dependent type 2 diabetes who [facility] the [facility]. The patient is a poor historian and is only able to the provided very limited history. Otherwise, his history is obtained by review of his electronic medical record. The patient is known to our service from a recent admission about 1 month ago. He was admitted with abdominal pain and found to have cholelithiasis and possible cholecystitis. It was felt that his abdominal pain was more related to PEG tube dysfunction and he had a HIDA scan that was normal. He was discharged home and recommended to follow a low-fat diet. Apparently, he began complaining of upper abdominal pain at the [place] [facility] again a few days ago and was subsequently brought into the ER for evaluation. H
--- NOTE | 2021-01-17 15:13 | PC.NURSE ---
Spoke with Serena from alf, gave her an update on patient and he will be admitted
[2021-01-17 15:33] LABS: Troponin I < 0.012 ng/mL (0.000-0.034)
--- NOTE | 2021-01-17 15:40 | PC.NURSE ---
Attempted to call report they state they have not received the fax, tubed SBAR
--- NOTE | 2021-01-17 16:28 | PC.NURSE ---
Pt traveling with maintenance fluids NS at 75ml/hr
--- NOTE | 2021-01-17 17:20 | ADMGEN ---
This patient, Bruno Justin, was admitted to [facility] Surg Room [id number] [id number]. Patient/family oriented to hospital policies and general routines including ID bracelet, bed and alarms, visiting hours, pain management, procedures, bathroom and other care routines, personal items, smoking policy, room service/diet, and visiting hours. Information on how to activate the Rapid Response Team has been discussed. Patient/Family are encouraged to report perceived risks to care and to ask questions if they do not understand what they are told or what they should do.
[2021-01-17 18:50] LABS: Troponin I < 0.012 ng/mL (0.000-0.034)
[2021-01-17 20:56] LABS: Hemoglobin A1C 5.4 % (<5.7)
[2021-01-17 23:31] LABS: Glucose Point of Care 198 mg/dl (65-105)
[2021-01-18] VITALS (17 sets, daily range): BP systolic 115–141; BP diastolic 50–78; PULSE 87–99; RESP 14–20; TEMP 36.3–37.1; O2SAT 95–100
[2021-01-18 07:45] LABS: Hematocrit 23.3 % (42.0-52.0); Hemoglobin 7.6 g/dL (14.0-18.0); Mean Corpuscular HGB Conc 32.6 g/dl (32-36); Mean Corpuscular Volume 92.1 fl (80-100); Mean Platelet Volume 10.1 fl (7.4-10.4); Platelet Count Result 401 k/mm3 (150-375); Red Blood Count 2.53 M/mm3 (4.6-6.20); Red Cell Distribution Width 14.6 % (11.5-14.5); White Blood Count 7.6 K/mm3 (4.5-10.0)
[2021-01-18 08:19] LABS: Alanine Aminotransferase 54 U/L (4-50); Albumin Level 2.9 g/dL (3.5-5.1); Alkaline Phosphatase 307 U/L (38-126); Anion Gap 8 mmol/L (8-16); Aspartate Amino Transferase 51 U/L (17-59); Bilirubin,Total 0.9 mg/dL (0.2-1.3); Blood Urea Nitrogen 20 mg/dL (9-20); CRP 5.1 mg/dL (<1.0); Calcium 8.2 mg/dL (8.4-10.2); Carbon Dioxide 24 mmol/L (22-30); Chloride 98 mmol/L (98-107); Creatine Kinase < 20 U/L (55-170); Estimated CRCL calculation 53 ml/min; Estimated Glomerular Filt Rate > 60; Glucose 103 mg/dL (65-110); Lactate Dehydrogenase 260 U/L (313-618); Magnesium 1.5 mg/dL (1.6-2.3); Potassium 4.3 mmol/L (3.4-5.0); Sodium 130 mmol/L (137-145)
[2021-01-18 09:41] LABS: Lipase 170 U/L (23-300)
[2021-01-18 09:50] LABS: Glucose Point of Care 105 mg/dl (65-105)
[2021-01-18] MEDS: MAGNESIUM SULF 4 GM/WATER100ML 4 GM/100 ML BAG IVPB (10:10)
[2021-01-18 13:21] LABS: Glucose Point of Care 151 mg/dl (65-105)
--- NOTE | 2021-01-18 13:30 | PM.IMPN ---
Progress Note: A&P Assessment and Plan (1) Chronic cholecystitis: Code(s): K81.1 - Chronic cholecystitis Status: Deleted Assessment and Plan: Present with pressure-like discomfort in the lateral right upper quadrant tender around the PEG tube site LFTs were elevated repeat CT of the abdomen and pelvis done today showed probable cholelithiasis with mild periportal edema Repeat HIDA scan showed no gallbladder activity for 1.[address] scan also shows bladder wall thickening suspicious for cystitis however UA is unremarkable. received a dose of Zosyn the emergency department surgery consultation thank you for you help Patient taken to OR for cholecystectomy Post op day 0 (2) Chronic hyponatremia: Code(s): E87.1 - Hypo-osmolality and hyponatremia Status: Acute Assessment and Plan: Sodium is stable at 130 L of normal saline overnight Trend labs labs in the am (3) Elevated LFTs: Code(s): R79.89 - Other specified abnormal findings of blood chemistry Status: Acute Assessment and Plan: AST, ALT, and alkaline phosphatase are elevated 51/54, 307 bilirubin is normal 0.9 Continue to monitor for now. (4) Chronic anemia: Code(s): D64.9 - Anemia, unspecified Status: Chronic Assessment and Plan: Hemoglobin hematocrit 7.6/23.3 Continue to trend Transfuse under 7 (5) Hypertension: Code(s): I10 - Essential (primary) hypertension Status: Chronic Assessment and Plan: Blood pressures are stable Continue home carvedilol 6.25 Trend blood pressure Adjust medications as needed (6) Insulin dependent type 2 diabetes mellitus: Code(s): E11.9 - Type 2 diabetes mellitus without complications; Z79.4 - terminal clerk (current) use of insulin Status: Chronic Assessment and Plan: Glucose 103 hold metformin Initiate sliding scale insulin Accu-Cheks hypoglycemic protocol Hemoglobin A1c 5.4 (7) Congestive heart failure: Code(s): I50.9 - Heart failure, unspecified Status: Chronic Assessment and Plan: He appears clinically compensated Monitor volume status closely while cautiously hydrating Daily weights Continue furosemide when appropriate (8) PEG (percutaneous endoscopic gastrostomy) status: Code(s): Z93.1 - Gastrostomy status Status: Chronic Assessment and Plan: Still present not used at this time Time Spent With Patient Time with patient: 25 - 35 minutes Subjective Date/time seen: 01/18/21 13:30 Interval history: Date/Time: 01/17/21 12:45 Narrative: This is a 65-year-old male with coronary artery disease, hypertension, hyperlipidemia and insulin-dependent type 2 diabetes who presented to the emergency department earlier today via EMS from [facility] for evaluation of abdominal pain. He is a poor historian and does not answer many oh my questions verbally but he does nod and shake his head appropriately and follows commands. As such a majority of the following is obtained via a review of his electronic medical records. He is known to the hospitalist service with a recent admission last month at which time he was brought in for abdominal pain and possible PEG tube dysfunction. Imaging at that time suggested possible cholecystitis however his exam was benign and HIDA scan was normal and it was suggested that he eat a low-fat diet. There were no issues with his G-tube during this stay and a modified barium swallow showed trace laryngeal penetration without aspiration thus there are hopes that the tube can be removed soon. In any event, he reportedly has been complaining once again of abdominal pain for the last several days and at the time my evaluation he poor eats to the mid-right upper quadrant and right flank regions and tells me it feels like there is pressure there. He also indicates that he is having discomfort
--- NOTE | 2021-01-18 13:30 | P.PNIM_ITS ---
Progress Note: A&P Assessment and Plan (1) Chronic cholecystitis: Code(s): K81.1 - Chronic cholecystitis Status: Deleted Assessment and Plan: * Present with pressure-like discomfort in the lateral right upper quadrant * tender around the PEG tube site * LFTs were elevated * repeat CT of the abdomen and pelvis done today showed probable cholelithiasis with mild periportal edema * Repeat HIDA scan showed no gallbladder activity for 1.5 hours * CT scan also shows bladder wall thickening suspicious for cystitis however UA is unremarkable. * received a dose of Zosyn the emergency department * surgery consultation thank you for you help * Patient taken to OR for cholecystectomy * Post op day 0 (2) Chronic hyponatremia: Code(s): E87.1 - Hypo-osmolality and hyponatremia Status: Acute Assessment and Plan: * Sodium is stable at 130 * L of normal saline overnight * Trend labs * labs in the am (3) Elevated LFTs: Code(s): R79.89 - Other specified abnormal findings of blood chemistry Status: Acute Assessment and Plan: * AST, ALT, and alkaline phosphatase are elevated 51/54, 307 * bilirubin is normal 0.9 * Continue to monitor for now. (4) Chronic anemia: Code(s): D64.9 - Anemia, unspecified Status: Chronic Assessment and Plan: * Hemoglobin hematocrit 7.6/23.3 * Continue to trend * Transfuse under 7 (5) Hypertension: Code(s): I10 - Essential (primary) hypertension Status: Chronic Assessment and Plan: * Blood pressures are stable * Continue home carvedilol 6.25 * Trend blood pressure * Adjust medications as needed (6) Insulin dependent type 2 diabetes mellitus: Code(s): E11.9 - Type 2 diabetes mellitus without complications; Z79.4 - buttermaker continuous churn (current) use of insulin Status: Chronic Assessment and Plan: * Glucose 103 * hold metformin * Initiate sliding scale insulin * Accu-Cheks * hypoglycemic protocol * Hemoglobin A1c 5.4 (7) Congestive heart failure: Code(s): I50.9 - Heart failure, unspecified Status: Chronic Assessment and Plan: * He appears clinically compensated * Monitor volume status closely while cautiously hydrating * Daily weights * Continue furosemide when appropriate (8) PEG (percutaneous endoscopic gastrostomy) status: Code(s): Z93.1 - Gastrostomy status Status: Chronic Assessment and Plan: * Still present not used at this time Time Spent With Patient Time with patient: 25 - 35 minutes Subjective Date/time seen: 01/18/21 13:30 Interval history: Date/Time: 01/17/21 12:45 Narrative: This is a 65-year-old male with coronary artery disease, hypertension, hyperlipidemia and insulin-dependent type 2 diabetes who presented to the emergency department earlier today via EMS from [facility] for evaluation of abdominal pain. He is a poor historian and does not answer many oh my questions verbally but he does nod and shake his head appropriately and follows commands. As such a majority of the following is obtained via a review of his electronic medical records. He is known to the hospitalist service with a recent admission last month at which time he was brought in for abdominal pain and possible PEG tube dysfunction. Imaging at that time suggested possible cholecystitis however his exam was benign and HIDA scan was normal and it was suggested t
--- NOTE | 2021-01-18 13:42 | PM.PNGS ---
Progress Note: A&P Assessment and Plan (1) Chronic cholecystitis: Code(s): K81.1 - Chronic cholecystitis Status: Chronic Assessment and Plan: HIDA scan consistent with cholecystitis. By my review of imaging there does appear to be stones or sludge in the gallbladder to. We will go ahead with laparoscopic cholecystectomy today. The procedure the risks benefits have been discussed. He agrees to go ahead. (2) PEG (percutaneous endoscopic gastrostomy) status: Code(s): Z93.1 - Gastrostomy status Status: Chronic Assessment and Plan: Gastrografin injection shows no problems or migration of the PEG tube. Continue to gravity and okay to use for feedings postoperatively as needed. (3) Obstructive sleep apnea: Code(s): G47.33 - Obstructive sleep apnea (adult) (pediatric) Status: Chronic (4) Diabetes mellitus: Code(s): E11.9 - Type 2 diabetes mellitus without complications Status: Chronic Subjective Subjective Date/Time Seen: 01/18/21 13:42 Patient reports: no new complaints, pain is less and afebrile Review of Systems Review of Systems: All systems reviewed & are unremarkable except as noted in HPI and below Constitutional: Constitutional: Denies chills, Denies fever(s) and Denies headache(s) Cardiovascular: Cardiovascular: Denies chest pain and Denies dyspnea Respiratory: Respiratory: Denies cough and Denies dyspnea Gastrointestinal: Gastrointestinal: Reports as per HPI, Denies abdominal pain, Denies nausea and Denies vomiting Exam Const: General: comfortable and no acute distress; No confusion Orientation/consciousness: patient oriented x3 and No confusion GI: Inspection: obesity and other (G-tube left upper quadrant, in good condition) GI Palp: Yes Soft to palpation, No Tenderness to palpation present (GI), No Guarding due to palpation present (GI) and No Rebound tenderness present Auscultation: normal bowel sounds Extrem: General: no calf tenderness and no edema Objective Data Vital Signs Vital Signs: Vital Signs - 24 hr 01/17/21 13:50 01/17/21 14:15 01/17/21 15:00 Temperature Pulse Rate 75 78 75 Respiratory Rate 16 15 18 Blood Pressure 103/63 114/63 123/62 Pulse Oximetry 96 99 01/17/21 15:39 01/17/21 16:20 01/17/21 16:40 Temperature 36.1 C L Pulse Rate 78 78 96 Respiratory Rate 12 12 14 Blood Pressure 128/65 126/62 106/52 L Pulse Oximetry 99 96 98 01/17/21 21:23 01/18/21 05:37 Temperature 36.5 C 36.3 C L Pulse Rate 92 87 Respiratory Rate 16 16 Blood Pressure 103/57 L 115/50 L Pulse Oximetry 98 97 Intake/Output Intake/Output: Intake & Output 01/15/21 01/16/21 01/17/21 01/18/21 23:59 23:59 23:59 23:59 Intake Total 1610 250 Balance 1610 250 Meds/Results Medications: Active Medications Generic Name Dose Route Start Last Admin Trade Name Freq PRN Reason Stop Dose Admin Dextrose 12.5 gm 01/17/21 19:44 Dextrose 50% 25 Gm/50 Ml Syringe IV PUSH PRN PRN Hypoglycemia Protocol Glucagon 1 mg 01/17/21 19:44 Glucagon For Inj 1 Mg Vial IM PRN PRN Hypoglycemia Protocol Glucose 15 gm 01/17/21 19:44 Glucose Oral Gel 15 Gm Of Glucse In 37.5 Gm Tube PO PRN PRN Hypoglycemia Protocol Dextrose 1,000 mls @ 100 mls/hr 01/17/21 19:44 Dextrose 5% 1,000 Ml IVPB PRN PRN Hypoglycemia Protocol Cefazolin Sodium 2 gm in 50 mls @ 100 mls/hr 01/18/21 13:40 Ancef 2 Gm/D5w 50 Ml IVPB 01/18/21 14:09 ONCE ONE Insulin Aspart 2 - 5 units 01/18/21 08:00 01/18/21 13:19 Insulin Aspart (*Bkc) 100 Units/Ml SUB-Q Not Given TIDWM [facility] Protocol Miconazole Nitrate 1 applic 01/18/21 09:00 Miconazole 2% Antifungal Ointment 56 Gm TOPICAL Q12HR [facility] Morphine Sulfate 2 mg 01/17/21 12:08 Morphine Sulfate (*Crx) 2 Mg/Ml Inj IV PUSH Q2H PRN Pain Rated 7-10 Ondansetron HCl 4 mg 01/17/21 12:08 Ondansetron
--- NOTE | 2021-01-18 14:04 | PC.NURSE ---
To OR per bed. Report given to Bird. Nenita BUI, notified via telephone.
[2021-01-18] MEDS: LACTATED RINGERS 1,000 ML 30 ML IV CONT ×2 (14:10→16:01)
--- NOTE | 2021-01-18 14:15 | WPDANESEPPF ---
Anes - Initial Pre Proc Eval Procedure: Operation Date: 01/18/21 15:00 Proposed Procedures p Laparoscopic Cholecystectomy - Bruce Hines MD Date/Time: 01/18/21 14:15 Surgeon: Samuel Preciado MD Pre Op Diagnosis: abdominal pain,elevated alk phos,dehydration Patient Data Age: 65 Gender: M Height: 1.52 m Weight: 93.9 kg Last Vital Signs Temp 36.3 C L 01/18/21 05:37 Pulse 87 01/18/21 05:37 Resp 16 01/18/21 05:37 BP 115/50 L 01/18/21 05:37 Pulse Ox 97 01/18/21 05:37 Allergies Allergy/AdvReac Type Severity Reaction Status Date / Time No Known Allergies Allergy Unverified 12/28/20 09:10 Home Medications Medication Instructions Recorded Confirmed Type insulin aspart U-100 100 unit/mL See Rx Instructions SUB-Q TID #15 05/17/19 01/17/21 Rx (3 mL) subcutaneous pen ml hydrocodone 5 mg-acetaminophen 325 1 tablet PO Q6H PRN #120 tablet 06/28/19 01/17/21 Rx mg tablet pregabalin 100 mg capsule See Rx Instructions PO BID #90 cap 06/16/20 01/17/21 Rx Adults Multivitamin 1 tablet PO DAILY 12/23/20 01/17/21 History acetaminophen 650 mg PO Q6H PRN 12/23/20 01/17/21 History acidophilus-sporogenes 1 tablet PO BID 12/23/20 01/17/21 History albuterol sulfate 2 puff INHALATION QID PRN 12/23/20 01/17/21 History artificial tears solution 2 drp OPHTHALMIC (EYE) PRN PRN 12/23/20 01/17/21 History carboxymethylcellulose sodium 1 drp EACH EYE 4-6XD PRN 12/23/20 01/17/21 History carvedilol 6.25 mg PO Q12H 12/23/20 01/17/21 History cefepime 2 g IV Q12H 12/23/20 12/23/20 History cholecalciferol (vitamin D3) 125 mcg PO DAILY 12/23/20 01/17/21 History collagenase clostridium histo. 1 applic TOPICAL DAILY 12/23/20 01/17/21 History cyanocobalamin (vitamin B-12) 1,000 mcg PO DAILY 12/23/20 01/17/21 History [Vitamin B-12] escitalopram oxalate 5 mg PO DAILY 12/23/20 01/17/21 History esomeprazole magnesium 40 mg PO DAILY 12/23/20 01/17/21 History fenofibrate 145 mg PO DAILY 12/23/20 01/17/21 History ferrous sulfate 325 mg PO TID 12/23/20 01/17/21 History fluticasone propionate [Allergy 1 spray INTRANASAL DAILY 12/23/20 01/17/21 History Relief (fluticasone)] furosemide 20 mg PO DAILY 12/23/20 01/17/21 History guaifenesin 200 mg PO Q4H PRN 12/23/20 01/17/21 History insulin aspart U-100 [Novolog 4 unit SUBCUT ACHS 12/23/20 01/17/21 History U-100 Insulin aspart] metformin 1,000 mg PO BID 12/23/20 01/17/21 History nitroglycerin 0.4 mg SUBLINGUAL Q5-15M PRN 12/23/20 01/17/21 History ondansetron HCl [Zofran] 4 mg PO Q6H PRN 12/23/20 01/17/21 History rosuvastatin 20 mg PO DAILY 12/23/20 01/17/21 History thiamine HCl (vitamin B1) [Vitamin 100 mg PO DAILY 12/23/20 01/17/21 History B-1] mupirocin 1 applic TOPICAL BID 01/17/21 01/17/21 History Laboratory Tests 01/17/21 01/17/21 01/17/21 14:54 18:07 18:07 WBC RBC Hgb Hct MCV MCH MCHC RDW Plt Count MPV Sodium Potassium Chloride Carbon Dioxide Anion Gap BUN Creatinine Estim Creat Clear Calc Estimated GFR Glucose POC Capillary Glucose Hemoglobin A1c 5.4 % % (<5.7) Calcium Magnesium Total Bilirubin AST ALT Alkaline Phosphatase Lactate Dehydrogenase Total Creatine Kinase Troponin I < 0.012 ng/mL D ng/mL < 0.012 ng/mL ng/mL (0.000-0.034) (0.000-0.034) C-Reactive Protein Total Protein Albumin Lipase TSH (Reflex) 12/01/21 12/02/21 12/02/21 22:21 06:31 06:35 WBC 7.6 K/mm3 K/mm3 (4.5-10.0) RBC 2.53 M/mm3 L M/mm3 (4.6-6.20) Hgb 7.6 g/dL L g/dL (14.0-18.0) Hct 23.3 % L % (42.
[2021-01-18] MEDS: ceFAZolin 2 GM/D5W 50 ML 2 GM/50 ML BAG IVPB (14:54)
--- NOTE | 2021-01-18 15:44 | W.PM.PROC2 ---
Procedure Note - Detailed Date of Procedure 01/18/21 Pre-op Diagnosis Chronic cholecystitis Post-op Diagnosis other (Cholelithiasis with chronic cholecystitis) Procedure Performed Laparoscopic cholecystectomy Surgeon Bruce Hines MD Household Appliance Assembler Hesham Ghotra [employer] Anesthesia general and local (0.5% Marcaine) Indications Patient has presented with epigastric abdominal pain nausea and vomiting. His CT scan and ultrasound showed sludge or stones in the gallbladder but no distinct findings of cholecystitis. He had a HIDA scan today which did show nonfilling of the gallbladder consistent with cholecystitis. He is taken to surgery now for laparoscopic cholecystectomy. Findings Chronic inflammation and black pigmented stones were noted in the gallbladder. No biliary ductal dilatation her liver abnormalities were appreciated Description of Procedure Patient was taken to surgery and induced into general anesthesia. The abdomen was prepped and draped. The gastrostomy tube was kept to gravity but was draped out of the field. The initial trocar was a 5 mm applied Medical optical trocar and was placed under direct visualization just above the umbilicus. We insufflated the abdomen and then placed the remaining ports in the usual fashion under direct visualization. The gallbladder was decompressed with a laparoscopic aspirator. The cholecystotomy was closed with a Vicryl endoloop. Adhesions were freed from the gallbladder and the gallbladder was able to then be retracted anterosuperiorly. There was lot of inflammation in the cholecystohepatic triangle. We placed traction on the infundibulum and dissected out the triangle of Calot. The cystic duct and cystic artery were carefully dissected. The gallbladder was dissected off the liver at its lower 3rd. Critical view was achieved. We securely clipped and divided the cystic duct and cystic artery. The gallbladder was then further dissected free from the liver. There was significant inflammation and the tissue plane between the gallbladder and the liver was fused. Either early bleeding from the liver or entry into the gallbladder occurred as we dissected the gallbladder off the liver at its upper half. No stones spilled. Cautery was used to achieve hemostasis. Eventually the gallbladder was completely freed. It was placed immediately in an Endo-Catch bag. It was retrieved through the 10 11 epigastric trocar site. We replaced the epigastric trocar and then reviewed the right upper quadrant. Additional cautery was used on the gallbladder fossa. Eventually hemostasis was quite good. We irrigated and suctioned the right upper quadrant numerous times. There was no evidence of bleeding or bile leakage. This cleared any debris or clot in the right upper quadrant. We then evacuated CO2 and removed the trocar sleeves. Skin wounds were closed with subcuticular 4-0 Monocryl skin suture. The wounds were dressed with Exofin surgical adhesive. Patient was awakened and taken to recovery in good condition. Sponge and needle counts were correct x2 Estimated Blood Loss -20 Drains No Packing No Pathology yes (Gallbladder) Complications No immediate complications Condition stable Disposition PACU
[2021-01-18 16:06] LABS: Glucose Point of Care 167 mg/dl (65-105)
--- NOTE | 2021-01-18 17:08 | SUR.PHASEI ---
faxed sbar at [phone]
--- NOTE | 2021-01-18 17:16 | SUR.PHASEI ---
This nurse called the nurses station to give report and was told that the nurse will call me back.
--- NOTE | 2021-01-18 17:41 | PC.NURSE ---
Return from OR per bed.
[2021-01-18] MEDS: SILVERGEL (ELTA) 45 ML 1 APPLIC TOPICAL (17:44)
[2021-01-18] MEDS: LACTATED RINGERS 1,000 ML 80 ML IV CONT (17:49)
[2021-01-19] VITALS (9 sets, daily range): BP systolic 109–147; BP diastolic 47–69; PULSE 88–101; RESP 15–18; TEMP 36.4–38.2; O2SAT 90–97; BMI 40.4
[2021-01-19 02:53] LABS: Glucose Point of Care 165 mg/dl (65-105)
[2021-01-19] MEDS: LACTATED RINGERS 1,000 ML 80 ML IV CONT (06:20)
[2021-01-19 06:41] LABS: Basophils Percent Auto 0.3 % (0.2-1.2); Eosinophils Absolute Auto 0.2 K/mm3 (0-0.3); Eosinophils Percent Auto 1.9 % (0-4.4); Hematocrit 23.6 % (42.0-52.0); Hemoglobin 7.6 g/dL (14.0-18.0); Immature Granulocyte Absolute 0.05 K/mm3 (0.00-0.031); Immature Granulocyte Percent A 0.5 % (0-0.5); Lymphocytes Absolute Auto 0.75 K/mm3 (0.9-3.2); Lymphocytes Percent Auto 6.8 % (18.3-44.2); Mean Corpuscular HGB Conc 32.2 g/dl (32-36); Mean Corpuscular Hemoglobin 30.2 pg (26-34); Mean Corpuscular Volume 93.7 fl (80-100); Mean Platelet Volume 10.1 fl (7.4-10.4); Monocytes Absolute Auto 0.6 K/mm3 (0.1-0.6); Monocytes Percent Auto 5.6 % (2.6-8.5); Neutrophils Absolute Auto 9.3 K/mm3 (1.3-6.7); Neutrophils Percent Auto 84.9 % (45.5-73.1); Platelet Count Result 425 k/mm3 (150-375); Red Blood Count 2.52 M/mm3 (4.6-6.20); Red Cell Distribution Width 14.8 % (11.5-14.5)
[2021-01-19 06:58] LABS: Alanine Aminotransferase 52 U/L (4-50); Albumin Level 2.8 g/dL (3.5-5.1); Alkaline Phosphatase 303 U/L (38-126); Anion Gap 8 mmol/L (8-16); Aspartate Amino Transferase 90 U/L (17-59); Bilirubin,Total 0.9 mg/dL (0.2-1.3); Blood Urea Nitrogen 15 mg/dL (9-20); Calcium 8.3 mg/dL (8.4-10.2); Carbon Dioxide 24 mmol/L (22-30); Chloride 101 mmol/L (98-107); Estimated CRCL calculation 58 ml/min; Estimated Glomerular Filt Rate > 60; Glucose 157 mg/dL (65-110); Magnesium 2.1 mg/dL (1.6-2.3); Potassium 4.5 mmol/L (3.4-5.0); Sodium 133 mmol/L (137-145)
[2021-01-19 07:46] LABS: Glucose Point of Care 150 mg/dl (65-105)
[2021-01-19] MEDS: ROSUVASTATIN 10 MG TABLET 20 MG PO (08:44)
[2021-01-19] MEDS: FERROUS SULFATE 324 MG TABLET PO ×3 (08:44→17:26)
[2021-01-19] MEDS: carvediloL 6.25 MG TABLET PO ×2 (08:44→21:22)
[2021-01-19] MEDS: ESCITALOPRAM OXALATE 5 MG TABLET PO (08:45)
[2021-01-19] MEDS: ENOXAPARIN 40 MG/0.4 ML SYRINGE SUB-Q (08:45)
[2021-01-19] MEDS: PREGABALIN (*CRX) 50 MG CAPSULE PO (08:48)
--- NOTE | 2021-01-19 10:30 | PM.IMPN ---
Progress Note: A&P Assessment and Plan (1) Chronic cholecystitis: Code(s): K81.1 - Chronic cholecystitis Status: Deleted Assessment and Plan: Present with pressure-like discomfort in the lateral right upper quadrant tender around the PEG tube site LFTs were elevated repeat CT of the abdomen and pelvis done today showed probable cholelithiasis with mild periportal edema Repeat HIDA scan showed no gallbladder activity for 1.[address] scan also shows bladder wall thickening suspicious for cystitis however UA is unremarkable. received a dose of Zosyn the emergency department surgery consultation thank you for you help cholecystectomy on 01/18/21 Post op day 1 (2) Chronic hyponatremia: Code(s): E87.1 - Hypo-osmolality and hyponatremia Status: Acute Assessment and Plan: Sodium is stable at 133 Trend labs labs in the am (3) Elevated LFTs: Code(s): R79.89 - Other specified abnormal findings of blood chemistry Status: Acute Assessment and Plan: AST, ALT, and alkaline phosphatase are elevated 90/52, 303 slightly elevated from yesterday bilirubin is normal 0.9 Continue to monitor for now. (4) Chronic anemia: Code(s): D64.9 - Anemia, unspecified Status: Chronic Assessment and Plan: Hemoglobin hematocrit 7.6/23.6 Continue to trend Transfuse under 7 Continue home iron TID (5) Hypertension: Code(s): I10 - Essential (primary) hypertension Status: Chronic Assessment and Plan: Blood pressures are stable Continue home carvedilol 6.25 Trend blood pressure Adjust medications as needed (6) Insulin dependent type 2 diabetes mellitus: Code(s): E11.9 - Type 2 diabetes mellitus without complications; Z79.4 - manager intermediate (current) use of insulin Status: Chronic Assessment and Plan: Glucose 157 hold metformin Initiate sliding scale insulin Accu-Cheks hypoglycemic protocol Hemoglobin A1c 5.4 (7) Congestive heart failure: Code(s): I50.9 - Heart failure, unspecified Status: Chronic Assessment and Plan: He appears clinically compensated Monitor volume status closely while cautiously hydrating Daily weights Continue furosemide when appropriate (8) PEG (percutaneous endoscopic gastrostomy) status: Code(s): Z93.1 - Gastrostomy status Status: Chronic Assessment and Plan: Still present not used at this time Time Spent With Patient Time with patient: Greater than 35 minutes Subjective Date/time seen: 01/19/21 1030 Interval history: Interval history: Date/Time: 01/17/21 12:45 Narrative: This is a 65-year-old male with coronary artery disease, hypertension, hyperlipidemia and insulin-dependent type 2 diabetes who presented to the emergency department earlier today via EMS from [facility] for evaluation of abdominal pain. He is a poor historian and does not answer many oh my questions verbally but he does nod and shake his head appropriately and follows commands. As such a majority of the following is obtained via a review of his electronic medical records. He is known to the hospitalist service with a recent admission last month at which time he was brought in for abdominal pain and possible PEG tube dysfunction. Imaging at that time suggested possible cholecystitis however his exam was benign and HIDA scan was normal and it was suggested that he eat a low-fat diet. There were no issues with his G-tube during this stay and a modified barium swallow showed trace laryngeal penetration without aspiration thus there are hopes that the tube can be removed soon. In any event, he reportedly has been complaining once again of abdominal pain for the last several days and at the time my evaluation he poor eats to the mid-right upper quadrant and right flank regions and tells me it feels like there is pressure there. He also
--- NOTE | 2021-01-19 10:30 | P.PNIM_ITS ---
Progress Note: A&P Assessment and Plan (1) Chronic cholecystitis: Code(s): K81.1 - Chronic cholecystitis Status: Deleted Assessment and Plan: * Present with pressure-like discomfort in the lateral right upper quadrant * tender around the PEG tube site * LFTs were elevated * repeat CT of the abdomen and pelvis done today showed probable cholelithiasis with mild periportal edema * Repeat HIDA scan showed no gallbladder activity for 1.5 hours * CT scan also shows bladder wall thickening suspicious for cystitis however UA is unremarkable. * received a dose of Zosyn the emergency department * surgery consultation thank you for you help * cholecystectomy on 01/18/21 * Post op day 1 (2) Chronic hyponatremia: Code(s): E87.1 - Hypo-osmolality and hyponatremia Status: Acute Assessment and Plan: * Sodium is stable at 133 * Trend labs * labs in the am (3) Elevated LFTs: Code(s): R79.89 - Other specified abnormal findings of blood chemistry Status: Acute Assessment and Plan: * AST, ALT, and alkaline phosphatase are elevated 90/52, 303 slightly elevated from yesterday * bilirubin is normal 0.9 * Continue to monitor for now. (4) Chronic anemia: Code(s): D64.9 - Anemia, unspecified Status: Chronic Assessment and Plan: * Hemoglobin hematocrit 7.6/23.6 * Continue to trend * Transfuse under 7 * Continue home iron TID (5) Hypertension: Code(s): I10 - Essential (primary) hypertension Status: Chronic Assessment and Plan: * Blood pressures are stable * Continue home carvedilol 6.25 * Trend blood pressure * Adjust medications as needed (6) Insulin dependent type 2 diabetes mellitus: Code(s): E11.9 - Type 2 diabetes mellitus without complications; Z79.4 - laborer marine terminal (current) use of insulin Status: Chronic Assessment and Plan: * Glucose 157 * hold metformin * Initiate sliding scale insulin * Accu-Cheks * hypoglycemic protocol * Hemoglobin A1c 5.4 (7) Congestive heart failure: Code(s): I50.9 - Heart failure, unspecified Status: Chronic Assessment and Plan: * He appears clinically compensated * Monitor volume status closely while cautiously hydrating * Daily weights * Continue furosemide when appropriate (8) PEG (percutaneous endoscopic gastrostomy) status: Code(s): Z93.1 - Gastrostomy status Status: Chronic Assessment and Plan: * Still present not used at this time Time Spent With Patient Time with patient: Greater than 35 minutes Subjective Date/time seen: 01/19/21 1030 Interval history: Interval history: Date/Time: 01/17/21 12:45 Narrative: This is a 65-year-old male with coronary artery disease, hypertension, hyperlipidemia and insulin-dependent type 2 diabetes who presented to the emergency department earlier today via EMS from [facility] for evaluation of abdominal pain. He is a poor historian and does not answer many oh my questions verbally but he does nod and shake his head appropriately and follows commands. As such a majority of the following is obtained via a review of his electronic medical records. He is known to the hospitalist service with a recent admission last month at which time he was brought in for abdominal pain and possible PEG tube dysfunction. Imaging at that time suggested possible cholecystitis however his exam was benign and HI
[2021-01-19] MEDS: SILVERGEL (ELTA) 45 ML 1 APPLIC TOPICAL (11:20)
[2021-01-19 12:16] LABS: Glucose Point of Care 218 mg/dl (65-105)
--- NOTE | 2021-01-19 12:16 | PM.PNGS ---
Progress Note: A&P Assessment and Plan (1) Cholelithiasis with chronic cholecystitis: Code(s): K80.10 - Calculus of gallbladder with chronic cholecystitis without obstruction Status: Chronic Assessment and Plan: patient doing well postop day 1. Will return to his diabetic consistent diet. Will put discharge instructions on the chart. Can be transferred back to nursing facility at the discretion of hospitalist. (2) Insulin dependent type 2 diabetes mellitus: Code(s): E11.9 - Type 2 diabetes mellitus without complications; Z79.4 - dedicated intermodal truck driver (current) use of insulin Status: Chronic (3) PEG (percutaneous endoscopic gastrostomy) status: Code(s): Z93.1 - Gastrostomy status Status: Chronic Assessment and Plan: Patient eating well. Most likely can have this removed as an outpatient in the future. (4) Obesity (BMI 30-39.9): Code(s): E66.9 - Obesity, unspecified Status: Chronic (5) Chronic anemia: Code(s): D64.9 - Anemia, unspecified Status: Chronic Assessment and Plan: Significant anemia, etiology unclear to me. Subjective Subjective Date/Time Seen: 01/19/21 12:16 Interval history: Patient is sleepy and not very talkative at all. He does seem to nod or otherwise non verbally respond to questions. He does not seem to have any significant abdominal pain. He has been taking in liquids and solids without difficulty. He has not had anything through his gastrostomy tube. Review of Systems Review of Systems: ROS unobtainable: Yes unobtainable due to mental status Exam Const: General: no acute distress, lethargic and tired appearing Nutritional Appearance: obese Orientation/consciousness: lethargic Limitations: physical limitations GI: Inspection: non-distended, incision ( Incisions dry and all healing well), obesity and other ( G-tube looks to be in good condition) GI Palp: Yes Soft to palpation and Yes Tenderness to palpation present (GI) ( minimal tenderness) Objective Data Vital Signs Vital Signs: Vital Signs - 24 hr 01/18/21 14:08 01/18/21 16:00 01/18/21 16:15 Temperature 36.9 C Pulse Rate 95 98 99 Respiratory Rate 20 20 20 Blood Pressure 117/52 L 135/62 137/60 Pulse Oximetry 97 100 99 01/18/21 16:30 01/18/21 16:45 01/18/21 17:00 Temperature Pulse Rate 95 94 93 Respiratory Rate 16 19 19 Blood Pressure 137/67 119/51 L 119/51 L Pulse Oximetry 96 96 95 01/18/21 17:14 01/18/21 17:15 01/18/21 17:30 Temperature Pulse Rate 92 92 91 Respiratory Rate 17 17 17 Blood Pressure 124/62 124/62 131/60 Pulse Oximetry 95 95 95 01/18/21 17:45 01/18/21 18:00 01/18/21 18:15 Temperature 37.0 C 37.0 C 36.8 C Pulse Rate 90 93 92 Respiratory Rate 14 16 16 Blood Pressure 123/67 120/67 133/73 Pulse Oximetry 99 100 100 01/18/21 18:30 01/18/21 18:45 01/18/21 19:01 Temperature 36.8 C 36.9 C 37.1 C Pulse Rate 90 92 90 Respiratory Rate 17 16 17 Blood Pressure 135/74 139/74 137/78 Pulse Oximetry 100 100 100 01/18/21 22:00 01/19/21 06:00 01/19/21 08:12 Temperature 36.3 C L 36.4 C 37.5 C Pulse Rate 95 101 H 96 Respiratory Rate 18 16 15 Blood Pressure 141/68 H 147/67 H 139/69 Pulse Oximetry 100 97 97 01/19/21 08:44 01/19/21 12:12 Temperature 37.8 C H Pulse Rate 88 93 Respiratory Rate 16 Blood Pressure 113/52 L Pulse Oximetry 97 Intake/Output Intake/Output: Intake & Output 01/16/21 01/17/21 01/18/21 01/19/21 23:59 23:59 23:59 23:59 Intake Total 1610 1450 1999 Balance 1610 1450 1999 Meds/Results Medications: Active Medications Generic Name Dose Route Start Last Admin Trade Name Freq PRN Reason Stop Dose Admin Acetaminophen 500 mg 01/18/21 17:31 Acetaminophen 500 Mg Tablet PO Q6H PRN Mild Pain (1-3) or Fever Hydrocodone Bitart/Acetaminophen 1 tab 01/18/21 17:31 Hydrocodone/Acetaminophen (*Crx) 5-325 Mg Tablet PO Q4H PRN Pain Rated 4-6 Albuterol 2 p
[2021-01-19] MEDS: ACETAMINOPHEN 500 MG TABLET PO (12:20)
[2021-01-19] MEDS: INSULIN ASPART (*BKC) 100 UNITS/ML SUB-Q (12:39)
[2021-01-19] MEDS: MUPIROCIN 2% OINT 22 GM TUBE 1 APPLIC TOPICAL ×2 (13:32→17:27)
--- NOTE | 2021-01-19 14:16 | PCNSR ---
On 01/19/21, the student, Gisela Chavis, provided care and completed [facility] documentation on this patient. I have reviewed the student's documentation and agree with the findings.
[2021-01-19 17:34] LABS: Glucose Point of Care 143 mg/dl (65-105)
[2021-01-19] MEDS: PREGABALIN (*CRX) 50 MG CAPSULE 100 MG PO (21:22)
[2021-01-20] VITALS (10 sets, daily range): BP systolic 128–155; BP diastolic 48–68; PULSE 87–121; RESP 16–20; TEMP 36–37.1; O2SAT 90–100
[2021-01-20 03:30] LABS: Glucose Point of Care 132 mg/dl (65-105)
[2021-01-20 06:27] LABS: Basophils Percent Auto 0.3 % (0.2-1.2); Eosinophils Absolute Auto 0.5 K/mm3 (0-0.3); Eosinophils Percent Auto 5.3 % (0-4.4); Hematocrit 22.3 % (42.0-52.0); Hemoglobin 7.2 g/dL (14.0-18.0); Immature Granulocyte Absolute 0.05 K/mm3 (0.00-0.031); Immature Granulocyte Percent A 0.6 % (0-0.5); Lymphocytes Absolute Auto 1.11 K/mm3 (0.9-3.2); Lymphocytes Percent Auto 12.4 % (18.3-44.2); Mean Corpuscular HGB Conc 32.3 g/dl (32-36); Mean Corpuscular Hemoglobin 29.5 pg (26-34); Mean Corpuscular Volume 91.4 fl (80-100); Mean Platelet Volume 9.6 fl (7.4-10.4); Monocytes Absolute Auto 0.8 K/mm3 (0.1-0.6); Monocytes Percent Auto 8.5 % (2.6-8.5); Neutrophils Absolute Auto 6.5 K/mm3 (1.3-6.7); Neutrophils Percent Auto 72.9 % (45.5-73.1); Platelet Count Result 459 k/mm3 (150-375); Red Blood Count 2.44 M/mm3 (4.6-6.20); Red Cell Distribution Width 14.7 % (11.5-14.5); White Blood Count 8.9 K/mm3 (4.5-10.0)
[2021-01-20 06:36] LABS: Alanine Aminotransferase 47 U/L (4-50); Alkaline Phosphatase 274 U/L (38-126); Anion Gap 5 mmol/L (8-16); Aspartate Amino Transferase 76 U/L (17-59); Blood Urea Nitrogen 14 mg/dL (9-20); Calcium 8.3 mg/dL (8.4-10.2); Carbon Dioxide 25 mmol/L (22-30); Chloride 99 mmol/L (98-107); Estimated CRCL calculation 63 ml/min; Estimated Glomerular Filt Rate > 60; Glucose 129 mg/dL (65-110); Magnesium 1.8 mg/dL (1.6-2.3); Potassium 4.3 mmol/L (3.4-5.0); Sodium 129 mmol/L (137-145)
[2021-01-20 07:47] LABS: Glucose Point of Care 117 mg/dl (65-105)
[2021-01-20] MEDS: ENOXAPARIN 40 MG/0.4 ML SYRINGE SUB-Q (09:06)
[2021-01-20] MEDS: ESCITALOPRAM OXALATE 5 MG TABLET PO (09:07)
[2021-01-20] MEDS: ROSUVASTATIN 10 MG TABLET 20 MG PO (09:07)
[2021-01-20] MEDS: FERROUS SULFATE 324 MG TABLET PO ×3 (09:07→16:54)
[2021-01-20] MEDS: carvediloL 6.25 MG TABLET PO ×2 (09:08→22:34)
[2021-01-20] MEDS: MUPIROCIN 2% OINT 22 GM TUBE 1 APPLIC TOPICAL ×2 (09:10→19:48)
[2021-01-20] MEDS: PREGABALIN (*CRX) 50 MG CAPSULE PO (09:12)
[2021-01-20] MEDS: SILVERGEL (ELTA) 45 ML 1 APPLIC TOPICAL (09:12)
--- NOTE | 2021-01-20 10:15 | PM.IMPN ---
Progress Note: A&P Assessment and Plan (1) Cholelithiasis with chronic cholecystitis: Code(s): K80.10 - Calculus of gallbladder with chronic cholecystitis without obstruction Status: Chronic Assessment and Plan: Present with pressure-like discomfort in the lateral right upper quadrant tender around the PEG tube site LFTs were elevated trending down repeat CT of the abdomen and pelvis done today showed probable cholelithiasis with mild periportal edema Repeat HIDA scan showed no gallbladder activity for 1.[address] scan also shows bladder wall thickening suspicious for cystitis however UA is unremarkable. received a dose of Zosyn the emergency department surgery consultation thank you for you help cholecystectomy on 01/18/21 Post op day 2 (2) Chronic hyponatremia: Code(s): E87.1 - Hypo-osmolality and hyponatremia Status: Acute Assessment and Plan: Sodium is stable at 129 Trend labs labs in the am Could be from hypervolemia (3) Elevated LFTs: Code(s): R79.89 - Other specified abnormal findings of blood chemistry Status: Acute Assessment and Plan: AST, ALT, and alkaline phosphatase are elevated 76/47, 274 slightly elevated from yesterday bilirubin is normal 1.0 Continue to monitor for now. (4) Chronic anemia: Code(s): D64.9 - Anemia, unspecified Status: Chronic Assessment and Plan: Hemoglobin hematocrit 7.2/22.3 Continue to trend Transfuse under 7 Continue home iron TID Will give one unit of blood (5) Hypertension: Code(s): I10 - Essential (primary) hypertension Status: Chronic Assessment and Plan: Blood pressures are stable Continue home carvedilol 6.25 Trend blood pressure Adjust medications as needed (6) Insulin dependent type 2 diabetes mellitus: Code(s): E11.9 - Type 2 diabetes mellitus without complications; Z79.4 - termite control technician (current) use of insulin Status: Chronic Assessment and Plan: Glucose 127 hold metformin Initiate sliding scale insulin Accu-Cheks hypoglycemic protocol Hemoglobin A1c 5.4 (7) Congestive heart failure: Code(s): I50.9 - Heart failure, unspecified Status: Chronic Assessment and Plan: He appears clinically compensated Monitor volume status closely while cautiously hydrating Daily weights Continue furosemide 20mg PO daily Give 40mg IV once (8) PEG (percutaneous endoscopic gastrostomy) status: Code(s): Z93.1 - Gastrostomy status Status: Chronic Assessment and Plan: Still present not used at this time Time Spent With Patient Time with patient: Greater than 35 minutes Subjective Date/time seen: 01/20/21 10:15 Interval history: Interval history: Date/Time: 01/17/21 12:45 Narrative: This is a 65-year-old male with coronary artery disease, hypertension, hyperlipidemia and insulin-dependent type 2 diabetes who presented to the emergency department earlier today via EMS from [facility] for evaluation of abdominal pain. He is a poor historian and does not answer many oh my questions verbally but he does nod and shake his head appropriately and follows commands. As such a majority of the following is obtained via a review of his electronic medical records. He is known to the hospitalist service with a recent admission last month at which time he was brought in for abdominal pain and possible PEG tube dysfunction. Imaging at that time suggested possible cholecystitis however his exam was benign and HIDA scan was normal and it was suggested that he eat a low-fat diet. There were no issues with his G-tube during this stay and a modified barium swallow showed trace laryngeal penetration without aspiration thus there are hopes that the tube can be removed soon. In any event, he reportedly has been complaining once again of abdominal pain for the last several
--- NOTE | 2021-01-20 10:15 | P.PNIM_ITS ---
Progress Note: A&P Assessment and Plan (1) Cholelithiasis with chronic cholecystitis: Code(s): K80.10 - Calculus of gallbladder with chronic cholecystitis without obstruction Status: Chronic Assessment and Plan: * Present with pressure-like discomfort in the lateral right upper quadrant * tender around the PEG tube site * LFTs were elevated trending down * repeat CT of the abdomen and pelvis done today showed probable cholelithiasis with mild periportal edema * Repeat HIDA scan showed no gallbladder activity for 1.5 hours * CT scan also shows bladder wall thickening suspicious for cystitis however UA is unremarkable. * received a dose of Zosyn the emergency department * surgery consultation thank you for you help * cholecystectomy on 01/18/21 * Post op day 2 (2) Chronic hyponatremia: Code(s): E87.1 - Hypo-osmolality and hyponatremia Status: Acute Assessment and Plan: * Sodium is stable at 129 * Trend labs * labs in the am * Could be from hypervolemia (3) Elevated LFTs: Code(s): R79.89 - Other specified abnormal findings of blood chemistry Status: Acute Assessment and Plan: * AST, ALT, and alkaline phosphatase are elevated 76/47, 274 slightly elevated from yesterday * bilirubin is normal 1.0 * Continue to monitor for now. (4) Chronic anemia: Code(s): D64.9 - Anemia, unspecified Status: Chronic Assessment and Plan: * Hemoglobin hematocrit 7.2/22.3 * Continue to trend * Transfuse under 7 * Continue home iron TID * Will give one unit of blood (5) Hypertension: Code(s): I10 - Essential (primary) hypertension Status: Chronic Assessment and Plan: * Blood pressures are stable * Continue home carvedilol 6.25 * Trend blood pressure * Adjust medications as needed (6) Insulin dependent type 2 diabetes mellitus: Code(s): E11.9 - Type 2 diabetes mellitus without complications; Z79.4 - terminal operations manager (current) use of insulin Status: Chronic Assessment and Plan: * Glucose 127 * hold metformin * Initiate sliding scale insulin * Accu-Cheks * hypoglycemic protocol * Hemoglobin A1c 5.4 (7) Congestive heart failure: Code(s): I50.9 - Heart failure, unspecified Status: Chronic Assessment and Plan: * He appears clinically compensated * Monitor volume status closely while cautiously hydrating * Daily weights * Continue furosemide 20mg PO daily * Give 40mg IV once (8) PEG (percutaneous endoscopic gastrostomy) status: Code(s): Z93.1 - Gastrostomy status Status: Chronic Assessment and Plan: * Still present not used at this time Time Spent With Patient Time with patient: Greater than 35 minutes Subjective Date/time seen: 01/20/21 10:15 Interval history: Interval history: Date/Time: 01/17/21 12:45 Narrative: This is a 65-year-old male with coronary artery disease, hypertension, hyperlipidemia and insulin-dependent type 2 diabetes who presented to the emergency department earlier today via EMS from [facility] for evaluation of abdominal pain. He is a poor historian and does not answer many oh my questions verbally but he does nod and shake his head appropriately and follows commands. As such a majority of the following is obtained via a review of his electronic medical records. He is known to the hospitalist service with a recent admission last
[2021-01-20 12:03] LABS: Glucose Point of Care 118 mg/dl (65-105)
--- NOTE | 2021-01-20 15:05 | PM.PNGS ---
Progress Note: A&P Assessment and Plan (1) Cholelithiasis with chronic cholecystitis: Qualifiers: Cholelithiasis location: gallbladder Biliary obstruction: without biliary obstruction Qualified Code(s): K80.10 - Calculus of gallbladder with chronic cholecystitis without obstruction Code(s): K80.10 - Calculus of gallbladder with chronic cholecystitis without obstruction Status: Chronic Assessment and Plan: doing well postop day 2. Continue solid food. [facility]. Subjective Subjective Date/Time Seen: 01/20/21 15:05 Post Op day: 2 Patient reports: no new complaints, tolerating a regular diet and afebrile Exam GI: Inspection: incision ( Dry and healing well), obesity and other ( G-tube intact and stable) GI Palp: Yes Soft to palpation, No Tenderness to palpation present (GI), No Hernia present and No Palpable mass present Objective Data Vital Signs Vital Signs: Vital Signs - 24 hr 01/19/21 16:06 01/19/21 21:50 01/20/21 06:00 Temperature 37.2 C 36.4 C 36.7 C Pulse Rate 91 95 92 Respiratory Rate 16 18 18 Blood Pressure 135/63 109/47 L 132/68 Pulse Oximetry 94 90 90 01/20/21 09:00 01/20/21 09:08 Temperature Pulse Rate 88 Respiratory Rate Blood Pressure Pulse Oximetry 90 Intake/Output Intake/Output: Intake & Output 01/17/21 01/18/21 01/19/21 01/20/21 23:59 23:59 23:59 23:59 Intake Total 1610 1450 2860 750 Balance 1610 1450 2860 750 Meds/Results Medications: Active Medications Generic Name Dose Route Start Last Admin Trade Name Freq PRN Reason Stop Dose Admin Acetaminophen 500 mg 01/18/21 17:31 01/19/21 12:20 Acetaminophen 500 Mg Tablet PO 500 mg Q6H PRN Administration Mild Pain (1-3) or Fever Hydrocodone Bitart/Acetaminophen 1 tab 01/18/21 17:31 Hydrocodone/Acetaminophen (*Crx) 5-325 Mg Tablet PO Q4H PRN Pain Rated 4-6 Albuterol 2 puff 01/18/21 17:31 Albuterol Sulfate (*Sp) Aerosol 1 Puff INHALATION QID PRN Shortness Of Breath Artificial Tears 2 drop 01/18/21 17:31 Artificial Tears Ophth Soln 15 Ml Bottle EACH EYE PRN PRN Dry Eye(S) Carvedilol 6.25 mg 01/18/21 21:00 01/20/21 09:08 Carvedilol 6.25 Mg Tablet PO 6.25 mg Q12HR WEI Administration Dextrose 12.5 gm 01/17/21 19:44 Dextrose 50% 25 Gm/50 Ml Syringe IV PUSH PRN PRN Hypoglycemia Protocol Enoxaparin Sodium 40 mg 01/19/21 09:00 01/20/21 09:06 Enoxaparin 40 Mg/0.4 Ml Syringe SUB-Q 40 mg DAILY WEI Administration Escitalopram Oxalate 5 mg 01/19/21 09:00 01/20/21 09:07 Escitalopram Oxalate 5 Mg Tablet PO 5 mg DAILY WEI Administration Ferrous Sulfate 324 mg 01/18/21 17:00 01/20/21 12:26 Ferrous Sulfate 324 Mg Tablet PO 324 mg TIDWM WEI Administration Furosemide 20 mg 01/21/21 09:00 Furosemide 20 Mg Tablet PO DAILY WEI Glucagon 1 mg 01/17/21 19:44 Glucagon For Inj 1 Mg Vial IM PRN PRN Hypoglycemia Protocol Glucose 15 gm 01/17/21 19:44 Glucose Oral Gel 15 Gm Of Glucse In 37.5 Gm Tube PO PRN PRN Hypoglycemia Protocol Dextrose 1,000 mls @ 100 mls/hr 01/17/21 19:44 Dextrose 5% 1,000 Ml IVPB PRN PRN Hypoglycemia Protocol Sodium Chloride 250 mls @ 30 mls/hr 01/20/21 12:03 Normal Saline Iv IV CONT 01/20/21 20:22 .[id number] STA Insulin Aspart 2 - 5 units 01/18/21 08:00 01/20/21 12:17 Insulin Aspart (*Bkc) 100 Units/Ml SUB-Q Not Given TIDWM [facility] Protocol Miconazole Nitrate 1 applic 01/18/21 09:00 01/20/21 09:10 Miconazole 2% Antifungal Ointment 56 Gm TOPICAL 1 applic Q12HR WEI Administration Morphine Sulfate 2 mg 01/17/21 12:08 Morphine Sulfate (*Crx) 2 Mg/Ml Inj IV PUSH Q2H PRN Pain Rated 7-10 Mupirocin 1 applic 01/18/21 17:31 01/20/21 09:10 Mupirocin 2% Oint 22 Gm Tube TOPICAL 1 applic BID WEI Adminis
[2021-01-20] MEDS: FUROSEMIDE INJ 40 MG/4 ML VIAL IV PUSH (16:54)
[2021-01-20] MEDS: SODIUM CHLORIDE 0.9% IV 250 ML 30 ML IV CONT (17:30)
[2021-01-20] MEDS: TUBING, BLOOD PLUM PUMP TUBING 1 EACH XX (17:30)
[2021-01-20 17:36] LABS: Glucose Point of Care 104 mg/dl (65-105)
[2021-01-20] MEDS: PREGABALIN (*CRX) 50 MG CAPSULE 100 MG PO (22:34)
[2021-01-21 05:47] LABS: Glucose Point of Care 101 mg/dl (65-105)
[2021-01-21 05:53] VITALS: BP 138/64; PULSE 83; RESP 18; TEMP 36.8; O2SAT 97
[2021-01-21 06:21] LABS: Basophils Percent Auto 0.4 % (0.2-1.2); Eosinophils Absolute Auto 0.6 K/mm3 (0-0.3); Eosinophils Percent Auto 6.7 % (0-4.4); Hemoglobin 8.9 g/dL (14.0-18.0); Immature Granulocyte Absolute 0.03 K/mm3 (0.00-0.031); Immature Granulocyte Percent A 0.4 % (0-0.5); Lymphocytes Absolute Auto 1.19 K/mm3 (0.9-3.2); Lymphocytes Percent Auto 14.5 % (18.3-44.2); Mean Corpuscular Hemoglobin 29.7 pg (26-34); Mean Platelet Volume 9.8 fl (7.4-10.4); Monocytes Absolute Auto 0.8 K/mm3 (0.1-0.6); Monocytes Percent Auto 9.3 % (2.6-8.5); Neutrophils Absolute Auto 5.6 K/mm3 (1.3-6.7); Neutrophils Percent Auto 68.7 % (45.5-73.1); Platelet Count Result 451 k/mm3 (150-375); Red Cell Distribution Width 15.2 % (11.5-14.5); White Blood Count 8.2 K/mm3 (4.5-10.0)
[2021-01-21 06:29] LABS: Alanine Aminotransferase 40 U/L (4-50); Alkaline Phosphatase 291 U/L (38-126); Anion Gap 10 mmol/L (8-16); Aspartate Amino Transferase 66 U/L (17-59); Blood Urea Nitrogen 16 mg/dL (9-20); Calcium 8.2 mg/dL (8.4-10.2); Carbon Dioxide 24 mmol/L (22-30); Chloride 96 mmol/L (98-107); Estimated CRCL calculation 77 ml/min; Estimated Glomerular Filt Rate > 60; Glucose 110 mg/dL (65-110); Magnesium 1.6 mg/dL (1.6-2.3); Potassium 3.9 mmol/L (3.4-5.0); Sodium 130 mmol/L (137-145)
[2021-01-21 08:31] LABS: Glucose Point of Care 103 mg/dl (65-105)
--- NOTE | 2021-01-21 09:00 | P.DS_ITS ---
DS: Admitting Diagnosis Discharge Date Date of service 01/21/2021 at 9:00 a.m. Admitting Diagnosis Cholelithiasis with cholecystitis DS: Discharge Diagnosis Discharge Diagnosis (1) Cholelithiasis with chronic cholecystitis: Qualifiers: Biliary obstruction: without biliary obstruction Cholelithiasis location: gallbladder Qualified Code(s): K80.10 - Calculus of gallbladder with chronic cholecystitis without obstruction Code(s): K80.10 - Calculus of gallbladder with chronic cholecystitis without obstruction Status: Chronic Assessment and Plan: * Present with pressure-like discomfort in the lateral right upper quadrant * tender around the PEG tube site * LFTs were elevated trending down * repeat CT of the abdomen and pelvis done today showed probable cholelithiasis with mild periportal edema * Repeat HIDA scan showed no gallbladder activity for 1.5 hours * CT scan also shows bladder wall thickening suspicious for cystitis however UA is unremarkable. * received a dose of Zosyn the emergency department * surgery consultation thank you for you help * cholecystectomy on 01/18/21 * Post op day 3 (2) Chronic hyponatremia: Code(s): E87.1 - Hypo-osmolality and hyponatremia Status: Acute Assessment and Plan: * Sodium is stable at 130 * Trend labs * labs in the am * Could be from hypervolemia (3) Elevated LFTs: Code(s): R79.89 - Other specified abnormal findings of blood chemistry Status: Acute Assessment and Plan: * AST, ALT, and alkaline phosphatase are elevated 66/40, 291 slightly elevated from yesterday * bilirubin is normal 1.0 * Continue to monitor for now. 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 Status: Chronic Assessment and Plan: * Glucose 110 * hold metformin * Initiate sliding scale insulin * Accu-Cheks * hypoglycemic protocol * Hemoglobin A1c 5.4 (7) Congestive heart failure: Code(s): I50.9 - Heart failure, unspecified Status: Chronic Assessment and Plan: * He appears clinically compensated * Monitor volume status closely while cautiously hydrating * Daily weights * Continue furosemide 20mg PO daily * Give 40mg IV once (8) PEG (percutaneous endoscopic gastrostomy) status: Code(s): Z93.1 - Gastrostomy status Status: Chronic Assessment and Plan: * Still present not used at this time DS: Summary Hospital Course Hospital Course: Patient is 65-year-old male with a past medical history of coronary artery disease, hypertension, hyperlipidemia, and and type 2 diabetes who presented to the ED for evaluation of abdominal pain. Upon admission patient was noted to have elevated liver enzymes and elevated total bilirubin. Abdomen and pelvis CT with contrast s
--- NOTE | 2021-01-21 09:00 | PM.DS ---
DS: Admitting Diagnosis Discharge Date Date of service 01/21/2021 at 9:00 a.m. Admitting Diagnosis Cholelithiasis with cholecystitis DS: Discharge Diagnosis Discharge Diagnosis (1) Cholelithiasis with chronic cholecystitis: Qualifiers: Biliary obstruction: without biliary obstruction Cholelithiasis location: gallbladder Qualified Code(s): K80.10 - Calculus of gallbladder with chronic cholecystitis without obstruction Code(s): K80.10 - Calculus of gallbladder with chronic cholecystitis without obstruction Status: Chronic Assessment and Plan: Present with pressure-like discomfort in the lateral right upper quadrant tender around the PEG tube site LFTs were elevated trending down repeat CT of the abdomen and pelvis done today showed probable cholelithiasis with mild periportal edema Repeat HIDA scan showed no gallbladder activity for 1.[address] scan also shows bladder wall thickening suspicious for cystitis however UA is unremarkable. received a dose of Zosyn the emergency department surgery consultation thank you for you help cholecystectomy on 01/18/21 Post op day 3 (2) Chronic hyponatremia: Code(s): E87.1 - Hypo-osmolality and hyponatremia Status: Acute Assessment and Plan: Sodium is stable at 130 Trend labs labs in the am Could be from hypervolemia (3) Elevated LFTs: Code(s): R79.89 - Other specified abnormal findings of blood chemistry Status: Acute Assessment and Plan: AST, ALT, and alkaline phosphatase are elevated 66/40, 291 slightly elevated from yesterday bilirubin is normal 1.0 Continue to monitor for now. (4) Chronic anemia: Code(s): D64.9 - Anemia, unspecified Status: Chronic Assessment and Plan: Hemoglobin hematocrit 8.9/27 Continue to trend Transfuse under 7 Continue home iron TID Will give one unit of blood (5) Hypertension: Code(s): I10 - Essential (primary) hypertension Status: Chronic Assessment and Plan: Blood pressures are stable Continue home carvedilol 6.25 Trend blood pressure Adjust medications as needed (6) Insulin dependent type 2 diabetes mellitus: Code(s): E11.9 - Type 2 diabetes mellitus without complications; Z79.4 - intermediate designer (current) use of insulin Status: Chronic Assessment and Plan: Glucose 110 hold metformin Initiate sliding scale insulin Accu-Cheks hypoglycemic protocol Hemoglobin A1c 5.4 (7) Congestive heart failure: Code(s): I50.9 - Heart failure, unspecified Status: Chronic Assessment and Plan: He appears clinically compensated Monitor volume status closely while cautiously hydrating Daily weights Continue furosemide 20mg PO daily Give 40mg IV once (8) PEG (percutaneous endoscopic gastrostomy) status: Code(s): Z93.1 - Gastrostomy status Status: Chronic Assessment and Plan: Still present not used at this time DS: Summary Hospital Course Hospital Course: Patient is 65-year-old male with a past medical history of coronary artery disease, hypertension, hyperlipidemia, and and type 2 diabetes who presented to the ED for evaluation of abdominal pain. Upon admission patient was noted to have elevated liver enzymes and elevated total bilirubin. Abdomen and pelvis CT with contrast showed probably cholelithiasis with mild periportal edema. It also found bladder wall thickening however UA did not show any signs of UTI at this time. Right upper quadrant ultrasound found mild gallbladder wall thickening patient went for HIDA scan which showed no gallbladder activity for 1.5 hours. Patient was taken to the OR by Dr. cunha who proceeded with the cholecystectomy. Patient is postop day 3 and is doing well. Patient has been tolerating foods and eating. Patient was noted to be anemic which a hemoglobin hematocrit that dropped to 7
[2021-01-21] MEDS: ENOXAPARIN 40 MG/0.4 ML SYRINGE SUB-Q (10:02)
[2021-01-21 10:05] VITALS: PULSE 80
[2021-01-21] MEDS: carvediloL 6.25 MG TABLET PO (10:05)
[2021-01-21] MEDS: PREGABALIN (*CRX) 50 MG CAPSULE PO (10:05)
[2021-01-21] MEDS: ROSUVASTATIN 10 MG TABLET 20 MG PO (10:05)
[2021-01-21] MEDS: FERROUS SULFATE 324 MG TABLET PO ×2 (10:06→11:57)
[2021-01-21] MEDS: ESCITALOPRAM OXALATE 5 MG TABLET PO (10:06)
[2021-01-21] MEDS: FUROSEMIDE 20 MG TABLET PO (10:06)
[2021-01-21] MEDS: MUPIROCIN 2% OINT 22 GM TUBE 1 APPLIC TOPICAL (10:06)
[2021-01-21] MEDS: SILVERGEL (ELTA) 45 ML 1 APPLIC TOPICAL (10:07)
[2021-01-21] MEDS: MAGNESIUM SULF 4 GM/WATER100ML 4 GM/100 ML BAG IVPB (10:16)
[2021-01-21 12:17] LABS: Glucose Point of Care 104 mg/dl (65-105)
[2021-01-21 12:20] LABS: EDCOVIDSCREEN Negative (Negative)
== END 2021-01-21 14:55 | DRG 418 ==
LOC: ANHED 12:12 → ANH3MEDSUR 13:53
PROVIDERS: Physician Assistant; Surgery; Admitting Provider Internal Medicine; Emergency Provider Emergency Medicine; PCP Family Medicine; Visit Provider Nurse Practitioner
PROC: 0FT44ZZ Resection of Gallbladder, Percutaneous Endoscopic Approach (ICD-10-PCS; CPT 47562; principal; 2021-01-18 15:00)
DX: K80.10 Calculus of gallbladder with chronic cholecystitis without obstruction (principal); L97.429 Non-pressure chronic ulcer of left heel and midfoot with unspecified severity; E87.1 Hypo-osmolality and hyponatremia; E11.42 Type 2 diabetes mellitus with diabetic polyneuropathy; Z20.822 Contact with and (suspected) exposure to COVID-19; D64.9 Anemia, unspecified; I50.9 Heart failure, unspecified; I11.0 Hypertensive heart disease with heart failure; I25.10 Atherosclerotic heart disease of native coronary artery without angina pectoris; E78.5 Hyperlipidemia, unspecified; E11.51 Type 2 diabetes mellitus with diabetic peripheral angiopathy without gangrene; G47.30 Sleep apnea, unspecified; E86.0 Dehydration; R79.89 Other specified abnormal findings of blood chemistry; R93.5 Abnormal findings on diagnostic imaging of other abdominal regions, including retroperitoneum; Z66 Do not resuscitate; Z93.1 Gastrostomy status; E66.9 Obesity, unspecified; Z68.39 Body mass index [BMI] 39.0-39.9, adult; Z79.4 Long term (current) use of insulin; Z79.84 Long term (current) use of oral hypoglycemic drugs; Z79.899 Other long term (current) drug therapy
CPT/HCPCS: 36415; 36430; 49465; 74177; 76705; 78226; 80053; 81001; 82550; 82948; 83036; 83605; 83615; 83690; 83735; 84443; 84484; 85025; 85027; 85610; 85730; 86140; 86850; 86900; 86901; 86920; 87426; 88304; 93005; 96361; 96365; 96367; 96375; 99285; A9270; A9537; C1713; C9803; J0131; J0330; J0690; J1650; J1815; J1940; J2270; J2370; J2405; J2543; J2704; J3010; J3475; J7030; J7050; J7120; P9016; Q9967

== ENCOUNTER 2021-08-31 20:14 | Emergency (ER) | payer MEDICARE, MEDICAID, SELFPAY ==
[2021-08-31] VITALS (27 sets, daily range): BP systolic 104–137; BP diastolic 48–80; PULSE 75–85; RESP 11–18; TEMP 36.9; O2SAT 95–100
--- NOTE | ~2021-08-31 | XR_ITS ---
EXAMINATION: XR chest 2V 08/31/2021 20:50 INDICATION: Chest pain PROCEDURE: 2 view chest COMPARISON: 06/01/2020 FINDINGS: The lungs are clear. The cardiomediastinal silhouette is within normal limits. There are no pleural effusions. There is no pneumothorax suspected. IMPRESSION: 1: NO ACUTE CARDIOPULMONARY DISEASE. Reviewed, dictated and finalized at location A.
--- NOTE | 2021-08-31 20:16 | ECG_ITS ---
Measurements Intervals [place] Rate: 84 P: 48 IA: 258 QRS: -9 QRSD: 88 T: 35 QT: 369 QTc: 439 Interpretive Statements SINUS RHYTHM WITH FIRST DEGREE AV BLOCK EARLY PRECORDIAL R/S TRANSITION INFERIOR INFARCT, AGE INDETERMINATE BASELINE WANDER- II, III, AVF ABNORMAL ECG Electronically Signed On 08-31-2021 20:41:34 CDT by Spencer Young D.O.
[2021-08-31 20:30] LABS: Basophils Percent Auto 0.6 % (0.2-1.2); Eosinophils Absolute Auto 0.6 K/mm3 (0-0.3); Eosinophils Percent Auto 8.9 % (0-4.4); Hematocrit 30.8 % (42.0-52.0); Hemoglobin 10.2 g/dL (14.0-18.0); Immature Granulocyte Absolute 0.03 K/mm3 (0.00-0.031); Immature Granulocyte Percent A 0.4 % (0-0.5); Lymphocytes Absolute Auto 1.43 K/mm3 (0.9-3.2); Lymphocytes Percent Auto 19.8 % (18.3-44.2); Mean Corpuscular HGB Conc 33.1 g/dl (32-36); Mean Corpuscular Hemoglobin 30.5 pg (26-34); Mean Corpuscular Volume 92.2 fl (80-100); Mean Platelet Volume 9.7 fl (7.4-10.4); Monocytes Absolute Auto 0.6 K/mm3 (0.1-0.6); Neutrophils Absolute Auto 4.5 K/mm3 (1.3-6.7); Neutrophils Percent Auto 62.3 % (45.5-73.1); Platelet Count Result 292 k/mm3 (150-375); Red Blood Count 3.34 M/mm3 (4.6-6.20); Red Cell Distribution Width 14.3 % (11.5-14.5); White Blood Count 7.2 K/mm3 (4.5-10.0)
[2021-08-31] MEDS: ASPIRIN 81 MG CHEWABLE TABLET 324 MG PO (20:34)
[2021-08-31] MEDS: MORPHINE SULFATE (*CRX) 4 MG/ML INJ IV PUSH (20:37)
[2021-08-31 20:40] LABS: Alanine Aminotransferase 18 U/L (6-50); Albumin Level 3.8 g/dL (3.5-5.1); Alkaline Phosphatase 52 U/L (38-126); Anion Gap 7 mmol/L (8-16); Aspartate Amino Transferase 26 U/L (17-59); Bilirubin,Total 0.2 mg/dL (0.2-1.3); Blood Urea Nitrogen 35 mg/dL (9-20); Calcium 8.5 mg/dL (8.4-10.2); Carbon Dioxide 27 mmol/L (22-30); Chloride 94 mmol/L (98-107); Estimated CRCL calculation 46 ml/min; Estimated Glomerular Filt Rate 44; Glucose 319 mg/dL (65-110); Lipase 177 U/L (23-300); Potassium 4.7 mmol/L (3.4-5.0); Sodium 128 mmol/L (137-145)
[2021-08-31 20:42] LABS: Prothrombin Time 13.2 Seconds (11.1-14.7)
[2021-08-31 20:43] LABS: Partial Thromboplastin Time 29.5 SECONDS (22.3-36.8)
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
[2021-08-31 20:52] LABS: Troponin I < 0.012 ng/mL (0.000-0.034)
[2021-08-31 23:47] LABS: Troponin I < 0.012 ng/mL (0.000-0.034)
[2021-09-01] VITALS (12 sets, daily range): BP systolic 127–138; BP diastolic 75–82; PULSE 77–80; RESP 9–16; O2SAT 98–100
--- NOTE | 2021-09-01 01:08 | PC.NURSE ---
@0039 called [facility] to request transport. ETA [id number] @0040 called [facility] to request transport. @0107 called [facility] to confirm truck is enroute. ETA 10 minutes. @0107 cancelled [facility].
== END 2021-09-01 01:36 ==
PROVIDERS: Emergency Medicine; Emergency Provider Emergency Medicine; PCP Family Medicine
DX: R07.89 Other chest pain (principal); I50.9 Heart failure, unspecified; I11.0 Hypertensive heart disease with heart failure; E78.5 Hyperlipidemia, unspecified; I25.10 Atherosclerotic heart disease of native coronary artery without angina pectoris; E11.42 Type 2 diabetes mellitus with diabetic polyneuropathy; E11.51 Type 2 diabetes mellitus with diabetic peripheral angiopathy without gangrene; I73.9 Peripheral vascular disease, unspecified; D64.9 Anemia, unspecified; E87.1 Hypo-osmolality and hyponatremia; G47.33 Obstructive sleep apnea (adult) (pediatric); F32.9 Major depressive disorder, single episode, unspecified; Z79.4 Long term (current) use of insulin; Z79.84 Long term (current) use of oral hypoglycemic drugs; Z89.511 Acquired absence of right leg below knee; I44.0 Atrioventricular block, first degree; R94.31 Abnormal electrocardiogram [ECG] [EKG]
CPT/HCPCS: 36415; 71046; 80053; 83690; 84484; 85025; 85610; 85730; 93005; 96374; 99284; A9270; J2270